=== PATIENT | female | born 1980 | race Two or more races ===

== ENCOUNTER 2016-12-08 10:01 | Emergency (ER) | payer SELFPAY ==
[~2016-12-08] VITALS: Ht 154.9 cm; Wt 102.1 kg
[~2016-12-08 10:01] MED LIST: ALBU0.63 NEB; FLUT1DIS3 IH; MECL25TA3 PO; MONT10TA9 PO; PROAIR HFA8.5 GM IH; TRAM50TA PO
[2016-12-08 10:24] VITALS: BP 156/121
--- NOTE | 2016-12-08 10:33 | RAD ---
Right foot, 3 views, 12/08/2016: History: Foot swelling and pain No fracture or dislocation is identified. There is mild spurring at the midfoot level. A small inferior calcaneal spur is noted. Subcutaneous edema is present. IMPRESSION: No acute bony abnormality is detected.
--- NOTE | 2016-12-08 11:07 | PHYS DOC ---
Past Medical History Past Medical History: Asthma, Bronchitis, Hypertension, Hyperthyroid, Pneumonia Additional Past Medical Histor: vertigo, H/A's Past Surgical History: Appendectomy Additional Past Surgical Histo: CARPAL TUNNEL R HAND. Alcohol Use: None Drug Use: None Adult General Chief Complaint Chief Complaint: FOOT INJURY PAIN [facility] HPI Patient is a 36 year old female presents to emergency department stating that she has having right heel pain and discomfort. She states that she has increased pain when she strained her sleep and rest at night. She states that she also has increased pain when she is trying to ambulate at work. Patient states she has attempted to take ibuprofen with no relief. Patient denies any numbness or tingling into the toes. Patient denies any injury or trauma. Review of Systems Review of Systems Constitutional: Denies fever or chills [] Eyes: Denies change in visual acuity, redness, or eye pain [] HENT: Denies nasal congestion or sore throat [] Respiratory: Denies cough or shortness of breath [] Cardiovascular: No additional information not addressed in HPI [] GI: Denies abdominal pain, nausea, vomiting, bloody stools or diarrhea [] : Denies dysuria or hematuria [] Musculoskeletal: Denies back pain. Right foot pain Integument: Denies rash or skin lesions [] Neurologic: Denies headache, focal weakness or sensory changes [] Endocrine: Denies polyuria or polydipsia [] Allergies Allergies Allergies Coded Allergies Type Severity Reaction Last Updated Verified No Known Drug Allergies 08/03/13 No Physical Exam Physical Exam Constitutional: Well developed, well nourished, no acute distress, non-toxic appearance. [] HENT: Normocephalic, atraumatic, bilateral external ears normal, oropharynx moist, no oral exudates, nose normal. [] Eyes: PERRLA, EOMI, conjunctiva normal, no discharge. [] Neck: Normal range of motion, no tenderness, supple, no stridor. [] Cardiovascular:Heart rate regular rhythm, no murmur [] Lungs & Thorax: Bilateral breath sounds clear to auscultation [] Skin: Warm, dry, no erythema, no rash. [] Extremities: Right heel tenderness, no cyanosis, no clubbing, ROM intact, no edema. Patient with increase tenderness noted upon palpation of the heel area. Peripheral pulses 2+ cap refill brisk less than 2 seconds. Neurologic: Alert and oriented X 3, normal motor function, normal sensory function, no focal deficits noted. [] Psychologic: Affect normal, judgement normal, mood normal. [] Current Patient Data Vital Signs Vital Signs Date Time Temp Pulse Resp B/P (MAP) Pulse Ox O2 Delivery O2 Flow Rate FiO2 12/08/16 10:24 98.0 70 20 98 Room Air 98.0 EKG EKG [] Radiology/Procedures Radiology/Procedures [][facility] [address] [place] [address] IMAGING REPORT Signed PATIENT: DIONTE CAMILO ACCOUNT: [id number] : 1980 LOCATION: ER AGE: 36 SEX: F EXAM STATUS: REG ER ORD. PHYSICIAN: MARTHA AGUIRRE APRN REASON: right foot pain and swelling, no known injury PROCEDURE: FOOT RIGHT 3V Right foot, 3 views, 12/08/2016: History: Foot swelling and pain No fracture or dislocation is identified. There is mild spurring at the midfoot level. A small inferior calcaneal spur is noted. Subcutaneous edema is present. IMPRESSION: No acute bony abnormality is detected. DICTATED and SIGNED BY: NATALIA HONG MD DATE: 12/08/16 1027 CC: MARTHA AGUIRRE APRN; NON,STAFF; UNKNOWN PCP NAME ~ Course & Med Decision Making Course & Med Decision Making Pertinent Labs and Imaging studies reviewed. (See chart for details) Patient will be discharged home in stable condition. Patients x-ray was negative per radiology. Patient was recommended to use ibuprofen 800 mg every 8 hours. Also recommended ice packs on 20 minutes off 20 minutes several times a day. Recommended patient wear good supportive shoes. Patient was also encouraged to follow-up with a developmental electronics assembler. Since symptoms to return back to emergency prior been provided. All questions and concerns been answered at patient's bedside. Patient agrees with discharge instructions treatment regimens and follow-up recommendations. [] Dragon Disclaimer Dragon Disclaimer This electronic medical record was generated, in whole or in part, using a voice recognition dictation system. Departure Departure Impression: Primary Impression: Right foot pain Disposition: HOME, SELF-CARE Condition: STABLE Referrals: UNKNOWN PCP NAME (PCP) Patient Instructions: Plantar Fasciitis Additional Instructions: Activity as tolerated Ice packs on 20 minutes and off 20 minutes several times a day Elevation as much as possible Ibuprofen 800 mg every 8 hours with food Obtain good support shoes with arch support Followup with developmental electronics assembler in 1 week Return to emergency department as needed for signs and symptoms that become worse. MARTHA AGUIRRE APRN Dec 08, 2016 11:07
== END 2016-12-08 11:10 | disposition home or self-care (01) ==
LOC: ER 10:01
DX: M79.671 Pain in right foot (principal); I10 Essential (primary) hypertension; J45.909 Unspecified asthma, uncomplicated; Z90.49 Acquired absence of other specified parts of digestive tract
CPT/HCPCS: 73630; 99284

== ENCOUNTER 2017-10-15 12:54 | Emergency (ER) | payer SELFPAY ==
[~2017-10-15] VITALS: Ht 154.9 cm; Wt 122.5 kg
[2017-10-15] MEDS ORDERED: DEXAMETHASONE SOD PHOS 20 MG/5 ML VIAL. PO ONE (13:30)
[2017-10-15] MEDS ORDERED: ALBUTEROL SULFATE 2.5 MG/3 ML NEBU. NEB ONE ×2 (13:30→14:30)
--- NOTE | 2017-10-15 13:54 | RAD ---
EXAM: Chest, 2 views. HISTORY: Dyspnea. Wheezing. COMPARISON: 11/29/2014 FINDINGS: Frontal and lateral views of the chest are obtained. There is no infiltrate, pleural effusion or pneumothorax. The heart is normal in size. IMPRESSION: No acute pulmonary finding. Electronically signed by: Becky Mccarty MD (10/15/2017 1:51 PM) [place] [id number]
--- NOTE | 2017-10-15 13:55 | PHYS DOC ---
Past Medical History Past Medical History: Asthma, Bronchitis, Hypertension, Hyperthyroid, Pneumonia Additional Past Medical Histor: vertigo, H/A's Past Surgical History: Appendectomy Additional Past Surgical Histo: CARPAL TUNNEL R HAND. Alcohol Use: None Drug Use: None Adult General Chief Complaint Chief Complaint: ASTHMA HPI HPI Patient is a 37 year old female who presents to emergency room with complaints of shortness of breath and wheezing with asthma problems for the last weeks. She states she is currently taking some Augmentin that was prescribed a few weeks ago. States that she did not pick it up until a week ago because she could not afford it until then. Patient states she takes Qvar and Pro Air as prescribed by her primary care doctor. She denies any fever, nasal congestion, runny nose, body aches, ear pain, or headache. She states that her cough has been dry for the last 2 days. Patient is speaking full sentences Review of Systems Review of Systems Constitutional: Denies fever or chills [] HENT: Denies nasal congestion or sore throat [] Respiratory: Reports wheezing, dry cough, and shortness of breath for the last week. Cardiovascular: Denies chest pain GI: Denies abdominal pain, nausea, vomiting, or diarrhea [] Musculoskeletal: Denies back pain or joint pain [] Integument: Denies rash or skin lesions [] Neurologic: Denies headache, focal weakness or sensory changes [] Current Medications Current Medications Current Medications Medications (Trade) Dose Ordered Sig/Elizabeth Start Time Stop Time Status Last Admin Dose Admin Albuterol Sulfate (Ventolin Neb Soln) 2.5 mg 1X ONCE 10/15/17 14:30 10/15/17 14:31 DC 10/15/17 14:29 2.5 MG Dexamethasone Sodium Phosphate (Decadron) 10 mg 1X ONCE 10/15/17 13:30 10/15/17 13:31 DC 10/15/17 14:13 10 MG Allergies Allergies Allergies Coded Allergies Type Severity Reaction Last Updated Verified No Known Drug Allergies 08/03/13 No Physical Exam Physical Exam Constitutional: Well developed, well nourished, mild distress, non-toxic appearance. [] HENT: Normocephalic, atraumatic, bilateral external ears normal, bilateral TMs normal, posterior pharynx normal, oropharynx moist, no oral exudates, nose normal. [] Eyes: Normal Neck: Normal range of motion, no tenderness, supple, no stridor. [] Cardiovascular:Heart rate regular rhythm, no murmur [] Lungs & Thorax: Bilateral breath sounds expiratory wheezing throughout all jj, diminished posterior bases with wheezes bilaterally Skin: Warm, dry, no erythema, no rash, cap refill less than 2 seconds. [] Extremities: No cyanosis, no clubbing, no edema. [] Neurologic: Alert and oriented X 3, normal motor function, normal sensory function, no focal deficits noted. [] Psychologic: Affect normal, judgement normal, mood normal. [] Current Patient Data Vital Signs Vital Signs Date Time Temp Pulse Resp B/P (MAP) Pulse Ox O2 Delivery O2 Flow Rate FiO2 10/15/17 15:25 86 16 126/70 (88) 95 Room Air 10/15/17 13:07 98.5 98.5 EKG EKG [] Radiology/Procedures Radiology/Procedures Chest x-ray negative for any acute findings as read by radiologist[] Course & Med Decision Making Course & Med Decision Making Pertinent Labs and Imaging studies reviewed. (See chart for details) Patient is a 29-year-old female who presented with complaints of dry cough, wheezing and shortness of breath with history of asthma for the last week. Chest x-ray was normal. Patient received 2 breathing treatments in the emergency department and 10 mg of Decadron by mouth. She reported feeling better after the 2 breathing treatments. Lung sounds were clear with occasional expiratory wheeze in posterior bases following the treatment. Patient verbalized an understanding of home care, medications, follow-up, and return to ED instructions and was in agreement with the plan of care. Staff Physician Addendum: I was working in the ER during the course of this patient's visit. I was available for consultation as needed, but I was not directly involved in the care of this patient. [] Dragon Disclaimer Dragon Disclaimer This electronic medical record was generated, in whole or in part, using a voice recognition dictation system. Departure Departure Impression: Primary Impression: Asthma exacerbation Disposition: 01 HOME, SELF-CARE Condition: STABLE Referrals: UNKNOWN PCP NAME (PCP) Patient Instructions: Asthma, Adult, Asxp-cp-Xyme Additional Instructions: Fill prescription(s) and use as directed. Increase clear fluids. Avoid triggers such as smoke, fragrance, dust, and pollen. May take OTC cough suppressants as needed. Follow-up with your primary care doctor next week, return to the emergency room if her symptoms worsen. Scripts Benzonatate (TESSALON PERLE) 100 Mg Capsule 1 CAP PO TID for 7 Days, #21 CAP Prov: JACEK SIERRA HEAT TREAT SUPERVISOR 10/15/17 Prednisone (PREDNISONE) 50 Mg Tablet 1 TAB PO DAILY, #5 TAB Prov: JACEK SIERRA HEAT TREAT SUPERVISOR 10/15/17 Problem Qualifiers Primary Impression: Asthma exacerbation Asthma severity: unspecified severity Asthma persistence: unspecified Qualified Codes: J45.901 - Unspecified asthma with (acute) exacerbation JACEK SIERRA HEAT TREAT SUPERVISOR Oct 15, 2017 13:55 HANNAH VALERIO MD Oct 20, 2017 10:54
[2017-10-15] MEDS ORDERED: BENZ100C PO (15:16)
[2017-10-15] MEDS ORDERED: PRED50TA PO (15:16)
[2017-10-15 15:25] VITALS: BP 126/70
== END 2017-10-15 15:30 | disposition home or self-care (01) ==
LOC: ER 12:54
DX: J45.901 Unspecified asthma with (acute) exacerbation (principal); I10 Essential (primary) hypertension; E05.90 Thyrotoxicosis, unspecified without thyrotoxic crisis or storm; Z90.89 Acquired absence of other organs
CPT/HCPCS: 71046; 94640; 99284; J1100; J7613

== ENCOUNTER 2019-08-27 15:25 | Inpatient (IN) | payer SELFPAY ==
[~2019-08-27] VITALS: Ht 154.9 cm; Wt 109.8 kg
[~2019-08-27 15:25] MED LIST changes: +ALBU2.5V8 IH; +BENZ100C PO; +MECL-75 PO; -MECL25TA3 PO; +MONT10TA49 PO; -MONT10TA9 PO; +PRED50TA PO; -PROAIR HFA8.5 GM IH
[2019-08-27] MEDS ORDERED: DEXAMETHASONE 4 MG TABLET PO ONE (16:45)
[2019-08-27 16:53] LABS: BASO % 0 % (0-3); EOS # 0.2 x10^3/uL (0.0-0.7); EOS % 4 % (0-3); HEMATOCRIT 39.8 % (36.0-47.0); HEMOGLOBIN 13.9 g/dL (12.0-15.5); LYMPH # 1.1 x10^3/uL (1.0-4.8); LYMPH % 22 % (24-48); MEAN CORPUSCULAR HEMOGLOBIN 30 pg (25-35); MEAN CORPUSCULAR HGB CONC 35 g/dL (31-37); MEAN CORPUSCULAR VOLUME 87 fL (79-100); MONO # 0.3 x10^3/uL (0.0-1.1); MONO % 6 % (0-9); NEUT # 3.4 x10^3/uL (1.8-7.7); NEUT % 68 % (31-73); PLATELET COUNT 185 x10^3/uL (140-400); RED BLOOD COUNT 4.58 x10^6/uL (3.50-5.40); RED CELL DISTRIBUTION WIDTH 13.8 % (11.5-14.5); WHITE BLOOD COUNT 5.1 x10^3/uL (4.0-11.0)
[2019-08-27 17:01] LABS: CALCIUM 8.1 mg/dL (8.5-10.1); CREATININE 0.8 mg/dL (0.6-1.0); GFR 79.4; POTASSIUM 3.7 mmol/L (3.5-5.1); PROTHROMBIN TIME PATIENT 12.5 SEC (11.7-14.0)
[2019-08-27 17:07] LABS: ALBUMIN 3.1 g/dL (3.4-5.0); ALBUMIN/GLOBULIN RATIO 0.8 (1.0-1.7); MAGNESIUM 1.8 mg/dL (1.8-2.4); TOTAL BILIRUBIN 0.3 mg/dL (0.2-1.0); TOTAL PROTEIN 7.1 g/dL (6.4-8.2)
[2019-08-27 17:17] LABS: LACTATE DEHYDROGENASE 272 U/L (81-234)
[2019-08-27 17:18] LABS: CREATINE KINASE 142 U/L (26-192)
--- NOTE | 2019-08-27 17:51 | RAD ---
CHEST AP ONLY History: Reason: cough / Spl. Instructions: / History: Comparison: October 15, 2017 Findings: Low lung volumes. Patchy bibasilar opacities. Degraded evaluation of the costophrenic angles difficult to exclude small pleural effusions. No pneumothorax. Heart size. Impression: 1. Low lung volumes with patchy bibasilar opacities, most likely atelectasis. If persistent clinical concern, PA and lateral view of the chest can better assess. Electronically signed by: Zachery Lagos DO (08/27/2019 5:48 PM) [facility]US[facility]
--- NOTE | 2019-08-27 18:46 | PHYS DOC ---
Past Medical History Past Medical History: Asthma, Bronchitis, Hypertension, Hyperthyroid, Pneumonia Additional Past Medical Histor: vertigo, H/A's Past Surgical History: Appendectomy Additional Past Surgical Histo: CARPAL TUNNEL R HAND. Smoking Status: Never Smoker Alcohol Use: None Drug Use: None General Adult EDM: Chief Complaint: COUGH HPI: HPI: Patient is a 39 year old female presents with 1 month history of generalized malaise, SOA, and cough. Reports has been worse over the last 3 days. Reports subjective fever/chills and body aches. Reports recently took her children to their PCP for similar symptoms and they tested positive for COVID-19. Reports history of asthma and chronic bronchitis. Patient Mongolian speaking. 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 Review of Systems: Review of Systems: Constitutional: Reports subjective fever, chills, body aches, and malaise Eyes: Denies redness or eye pain HENT: Denies nasal congestion or sore throat Respiratory: Reports cough and shortness of breath Cardiovascular: Reports chest pain; denies palpitations GI: Denies abdominal pain, nausea, or vomiting : Denies dysuria or hematuria Musculoskeletal: Denies back pain or joint pain; reports myalgias Integument: Denies rash or skin lesions Neurologic: Denies headache, focal weakness or sensory changes Complete systems were reviewed and found to be within normal limits, except as documented in this note. Current Medications: Current Medications Medications (Trade) Dose Ordered Sig/[facility] Start Time Stop Time Status Last Admin Dose Admin Dexamethasone (Decadron) 10 mg 1X ONCE 08/27/19 16:45 08/27/19 16:46 DC 08/27/19 17:05 10 MG Allergies: Allergies: Allergies Coded Allergies Type Severity Reaction Last Updated Verified No Known Drug Allergies 08/03/13 No Physical Exam: PE: Constitutional: Well developed, well nourished HENT: Normocephalic, atraumatic Eyes: Conjunctiva normal, no discharge Neck: Normal range of motion, no tenderness, supple, no meningeal signs Lungs & Thorax: Tachypnea and increased work of breathing Abdomen: Soft, no tenderness Skin: Warm, dry, no erythema, no rash Back: No tenderness, no CVA tenderness Extremities: No tenderness, ROM intact, no edema Neurologic: Alert and oriented X 3, normal motor function, normal sensory function, no focal deficits noted Psychologic: Affect normal, judgment normal Current Patient Data: Labs: Laboratory Tests Test 08/27/19 16:35 White Blood Count 5.1 x10^3/uL (4.0-11.0) Red Blood Count 4.58 x10^6/uL (3.50-5.40) Hemoglobin 13.9 g/dL (12.0-15.5) Hematocrit 39.8 % (36.0-47.0) Mean Corpuscular Volume 87 fL (79-100) Mean Corpuscular Hemoglobin 30 pg (25-35) Mean Corpuscular Hemoglobin Concent 35 g/dL (31-37) Red Cell Distribution Width 13.8 % (11.5-14.5) Platelet Count 185 x10^3/uL (140-400) Neutrophils (%) (Auto) 68 % (31-73) Lymphocytes (%) (Auto) 22 % (24-48) L Monocytes (%) (Auto) 6 % (0-9) Eosinophils (%) (Auto) 4 % (0-3) H Basophils (%) (Auto) 0 % (0-3) Neutrophils # (Auto) 3.4 x10^3/uL (1.8-7.7) Lymphocytes # (Auto) 1.1 x10^3/uL (1.0-4.8) Monocytes # (Auto) 0.3 x10^3/uL (0.0-1.1) Eosinophils # (Auto) 0.2 x10^3/uL (0.0-0.7) Basophils # (Auto) 0.0 x10^3/uL (0.0-0.2) Prothrombin Time 12.5 SEC (11.7-14.0) Prothrombin Time INR 1.0 (0.8-1.1) Activated Partial Thromboplast Time 31 SEC (24-38) Sodium Level 139 mmol/L (136-145) Potassium Level 3.7 mmol/L (3.5-5.1) Chloride Level 104 mmol/L (98-107) Carbon Dioxide Level 25 mmol/L (21-32) Anion Gap 10 (6-14) Blood Urea Nitrogen 9 mg/dL (7-20) Creatinine 0.8 mg/dL (0.6-1.0) Estimated GFR (Cockcroft-Gault) 79.4 BUN/Creatinine Ratio 11 (6-20) Glucose Level 110 mg/dL (70-99) H Lactic Acid Level 1.1 mmol/L (0.4-2.0) Calcium Level 8.1 mg/dL (8.5-10.1) L Magnesium Level 1.8 mg/dL (1.8-2.4) Ferritin 220 ng/mL (8-252) Total Bilirubin 0.3 mg/dL (0.2-1.0) Aspartate Amino Transferase (AST) 48 U/L (15-37) H Alanine Aminotransferase (ALT) 55 U/L (14-59) Alkaline Phosphatase 69 U/L (46-116) Lactate Dehydrogenase 272 U/L (81-234) H Creatine Kinase 142 U/L (26-192) Creatine Kinase MB (Mass) < 0.5 ng/mL (0.0-3.6) Creatine Kinase MB Relative Index % (0-4) Troponin I Quantitative < 0.017 ng/mL (0.000-0.055) Total Protein 7.1 g/dL (6.4-8.2) Albumin 3.1 g/dL (3.4-5.0) L Albumin/Globulin Ratio 0.8 (1.0-1.7) L Laboratory Tests 08/27/19 16:35 Laboratory Tests 08/27/19 16:35 Vital Signs: Vital Signs Date Time Temp Pulse Resp B/P (MAP) Pulse Ox O2 Delivery O2 Flow Rate FiO2 08/27/19 18:01 83 33 116/74 (88) 95 Nasal Cannula 4.0 08/27/19 15:50 98.7 98.7 EKG: EKG: @1601 NSR at 86bpm, NO ST elevation, QRS 72ms, QT/QTc 342/412ms, Q wave in III Radiology/Procedures: Radiology/Procedures: PROCEDURE: CHEST AP ONLY CHEST AP ONLY History: Reason: cough / Spl. Instructions: / History: Comparison: October 15, 2017 Findings: Low lung volumes. Patchy bibasilar opacities. Degraded evaluation of the costophrenic angles difficult to exclude small pleural effusions. No pneumothorax. Heart size. Impression: 1. Low lung volumes with patchy bibasilar opacities, most likely atelectasis. If persistent clinical concern, PA and lateral view of the chest can better assess. Electronically signed by: Zachery Lagos DO (08/27/2019 5:48 PM) [facility] Course & Med Decision Making: Course & Med Decision Making Pertinent Labs and Imaging studies reviewed. (See chart for details) Patient presents with HPI and physical exam concerning for COVID-19 infection. Hx of exposure of known sick contacts within household. Patient with pmh of asthma and bronchitis. Hypoxia upon arrival. Improved with supplemental O2. Patient placed in negative pressure room. COVID precautions in place. COVID testing pending. EKG stable. Labs obtained and posted to chart. CXR with findings consistent for viral pneumonia vs atelectasis. Patient requiring admission for further evaluation and treatment. Discussed with Dr. Reynolds (hospitalist) who is in agreement with admission. Discussed findings and plan with patient, who acknowledges understanding and agreement. COVID-19 CRITERIA: The patient was evaluated during the global COVID-19 pandemic, and that diagnosis was suspected/considered upon their initial presentation. Their evaluation, treatment and testing was consistent with current guidelines for patients who present with complaints or symptoms that may be related to COVID-19. Derrick Disclaimer: Derrick Disclaimer: This electronic medical record was generated, in whole or in part, using a voice recognition dictation system. Departure Departure Impression: Primary Impression: Suspected 2019 novel coronavirus infection Additional Impression: Hypoxia Disposition: 09 ADMITTED INPATIENT Admitting Physician: BETH Ivy) Condition: GUARDED Referrals: UNKNOWN PCP NAME (PCP) Scripts Prednisone (PREDNISONE) 50 Mg Tablet 1 TAB PO DAILY for COVID 19 for 5 Days, #5 TAB Prov: CRISTINA SPENCE MD 09/05/19 Justicifation of Admission Dx: Justifications for Admission: Justification of Admission Dx: Yes Comments: Hypoxia and suspected COVID infection, hx of asthma/bronchitis COVID-19 Assessment: COVID-19 Patient Risks: Age 65 or older: No Sign of co-morbidity: Yes Exp to person + for COVID: Yes Exp to PUI: No Travel from affected area: No Lower respiratory symptoms: Yes Fever: Yes (reported subjective) PPE Use: Full PPE with N95 mask or PAPR: Yes Critical Care Time Critical care time was 30 minutes which includes time at bedside, spent in discussion of patient's care with specialists and/or family members, with interpretation of laboratory and/or radiological studies and is exclusive of procedures. SHAWN BLANK DO Aug 27, 2019 18:46
[2019-08-27] MEDS ORDERED: IPRATRPIUM/ALBUTEROL 0.5/2.5MG 3 ML NEBU. NEB PRN (19:00)
[2019-08-27] MEDS ORDERED: ONDANSETRON PF 4 MG/2 ML VIAL. IV PRN (19:00)
[2019-08-27] MEDS: ALBUTEROL SULFATE 8GM INHALER. INH PRN (23:59)
[2019-08-28] MEDS ORDERED: OMEP20CA16 PO (06:05)
[2019-08-28] MEDS ORDERED: MONT10TA49 PO (06:05)
[2019-08-28] MEDS ORDERED: IBUP-1027 PO (06:06)
[2019-08-28] MEDS ORDERED: FLUT9.9S NS (06:06)
[2019-08-28 06:28] LABS: BASE EXCESS ABG -1 mmol/L (-3-3); HCO3 ABG 23 mmol/L (21-28); PCO2 ABG 33 mmHg (35-46); PO2 ABG 61 mmHg (75-108); SAT O2 ABG 91 % (92-99)
[2019-08-28 06:29] LABS: FIO2 ABG 100
[2019-08-28 07:18] VITALS: BP 103/61
[2019-08-28] MEDS: BENZONATATE 100 MG CAPSULE. PO SCH ×3 (08:19→17:54)
[2019-08-28] MEDS: MORPHINE SULFATE 2 MG/ML VIAL. IV PRN (08:21)
[2019-08-28] MEDS ORDERED: ACETAMINOPHEN 325 MG TABLET. PO PRN (10:15)
[2019-08-28 11:06] VITALS: BP 101/55
[2019-08-28] MEDS ORDERED: IV NORMAL SALINE 1000ML BAG 1,000 ML IV ONE (14:00)
[2019-08-28] MEDS: methylPREDNISolone SOD SUCC PF 40 MG/ML VIAL. IV SCH ×2 (14:18→21:30)
--- NOTE | 2019-08-28 14:19 | NUR ---
SW following. Spoke with RN and reviewed chart. Pt from home with family. Pt is self-pay and [facility] is following. Pt on a non-rebreather. Pt's has pending blood cultures. Pt is COVID pending. Pt on IV Morphine. SW to continue following.
[2019-08-28 15:10] VITALS: BP 125/68
--- NOTE | 2019-08-28 16:45 | PDOC ---
PULMONARY PROGRESS NOTES Vitals Vital Signs Date Time Temp Pulse Resp B/P (MAP) Pulse Ox O2 Delivery O2 Flow Rate FiO2 08/28/19 15:10 97.8 74 18 125/68 (87) 94 97.8 08/28/19 09:32 15.0 08/28/19 08:00 Non-Rebreather Lungs: Clear Labs Laboratory Tests Test 08/27/19 16:35 08/27/19 21:50 08/28/19 00:55 08/28/19 06:27 White Blood Count 5.1 x10^3/uL (4.0-11.0) Red Blood Count 4.58 x10^6/uL (3.50-5.40) Hemoglobin 13.9 g/dL (12.0-15.5) Hematocrit 39.8 % (36.0-47.0) Mean Corpuscular Volume 87 fL (79-100) Mean Corpuscular Hemoglobin 30 pg (25-35) Mean Corpuscular Hemoglobin Concent 35 g/dL (31-37) Red Cell Distribution Width 13.8 % (11.5-14.5) Platelet Count 185 x10^3/uL (140-400) Neutrophils (%) (Auto) 68 % (31-73) Lymphocytes (%) (Auto) 22 % (24-48) Monocytes (%) (Auto) 6 % (0-9) Eosinophils (%) (Auto) 4 % (0-3) Basophils (%) (Auto) 0 % (0-3) Neutrophils # (Auto) 3.4 x10^3/uL (1.8-7.7) Lymphocytes # (Auto) 1.1 x10^3/uL (1.0-4.8) Monocytes # (Auto) 0.3 x10^3/uL (0.0-1.1) Eosinophils # (Auto) 0.2 x10^3/uL (0.0-0.7) Basophils # (Auto) 0.0 x10^3/uL (0.0-0.2) Prothrombin Time 12.5 SEC (11.7-14.0) Prothromb Time International Ratio 1.0 (0.8-1.1) Activated Partial Thromboplast Time 31 SEC (24-38) Sodium Level 139 mmol/L (136-145) Potassium Level 3.7 mmol/L (3.5-5.1) Chloride Level 104 mmol/L (98-107) Carbon Dioxide Level 25 mmol/L (21-32) Anion Gap 10 (6-14) Blood Urea Nitrogen 9 mg/dL (7-20) Creatinine 0.8 mg/dL (0.6-1.0) Estimated GFR (Cockcroft-Gault) 79.4 BUN/Creatinine Ratio 11 (6-20) Glucose Level 110 mg/dL (70-99) Lactic Acid Level 1.1 mmol/L (0.4-2.0) Calcium Level 8.1 mg/dL (8.5-10.1) Magnesium Level 1.8 mg/dL (1.8-2.4) Ferritin 220 ng/mL (8-252) Total Bilirubin 0.3 mg/dL (0.2-1.0) Aspartate Amino Transf (AST/SGOT) 48 U/L (15-37) Alanine Aminotransferase (ALT/SGPT) 55 U/L (14-59) Alkaline Phosphatase 69 U/L (46-116) Lactate Dehydrogenase 272 U/L (81-234) Creatine Kinase 142 U/L (26-192) Creatine Kinase MB (Mass) < 0.5 ng/mL (0.0-3.6) Creatine Kinase MB Relative Index % (0-4) Troponin I Quantitative < 0.017 ng/mL (0.000-0.055) < 0.017 ng/mL (0.000-0.055) < 0.017 ng/mL (0.000-0.055) Total Protein 7.1 g/dL (6.4-8.2) Albumin 3.1 g/dL (3.4-5.0) Albumin/Globulin Ratio 0.8 (1.0-1.7) O2 Saturation 91 % (92-99) Arterial Blood pH 7.45 (7.35-7.45) Arterial Blood pCO2 at Patient Temp 33 mmHg (35-46) Arterial Blood pO2 at Patient Temp 61 mmHg (75-108) Arterial Blood HCO3 23 mmol/L (21-28) Arterial Blood Base Excess -1 mmol/L (-3-3) FiO2 100 Laboratory Tests Test 08/27/19 21:50 08/28/19 00:55 08/28/19 06:27 Troponin I Quantitative < 0.017 ng/mL (0.000-0.055) < 0.017 ng/mL (0.000-0.055) O2 Saturation 91 % (92-99) Arterial Blood pH 7.45 (7.35-7.45) Arterial Blood pCO2 at Patient Temp 33 mmHg (35-46) Arterial Blood pO2 at Patient Temp 61 mmHg (75-108) Arterial Blood HCO3 23 mmol/L (21-28) Arterial Blood Base Excess -1 mmol/L (-3-3) FiO2 100 Medications Active Scripts Medications Dose Route/Sig Max Daily Dose Days Date Category Flonase Allergy Relief (Fluticasone Propionate) 9.9 Ml [place].susp 2 Sprays NS DAILY PRN 08/28/19 Reported Ibuprofen 400 Mg Tablet 400 Mg PO PRN Q6HRS PRN 08/28/19 Reported Omeprazole 20 Mg Capsule.dr 1 Cap PO DAILY PRN 08/28/19 Reported Montelukast Sodium Tablet (Montelukast Sodium) 10 Mg Tablet 10 Mg PO HS 08/28/19 Reported Tessalon Perle (Benzonatate) 100 Mg Capsule 1 Cap PO TID 7 10/15/17 Rx Prednisone 50 Mg Tablet 1 Tab PO DAILY 10/15/17 Rx Albuterol Sulfate Neb Soln (Albuterol Sulfate) 0.63 Mg/3 Ml Vial.neb 0.63 Mg NEB DAILY 11/29/14 Reported Proair Hfa Inhaler (Albuterol Sulfate) 8.5 Gm Hfa.aer.ad 2 Puff IH PRN Q4-6HRS 11/29/14 Reported Advair 250-50 Diskus (Fluticasone/Salmeterol) 1 Each Disk.w.dev 2 Puff IH HS 11/29/14 Reported Montelukast Sodium Tablet (Montelukast Sodium) 10 Mg Tablet 10 Mg PO HS 11/29/14 Reported Impression . Full note dictated, COVID-19 suspect, acute exacerbation of asthma If SARS-CoV-2 negative, will obtain CT angiogram to rule out PE RIP FERNANDEZ MD Aug 28, 2019 16:45
[2019-08-28 19:00] VITALS: BP 114/63
--- NOTE | 2019-08-28 19:51 | PDOC1 ---
History and Physical Date of Admission: Date of Admission DATE: 08/28/19 TIME: 19:43 Chief Complaint: Problems: (1) Asthma exacerbation (2) Hypoxia (3) Suspected 2019 novel coronavirus infection (4) Hypertension (5) Hyperthyroidism (6) Costochondritis, acute History of Present Illness: HPI: 39-year-old female with history of asthma, hypertension, hypothyroidism comes with complaints of chest pain, shortness of breath, cough, and chills and says that she has been sick for the last month but has worsened in the past 3 days. Patient also states that her kids were tested positive for COVID. She denies any aggravating or alleviating factors. She has never experienced symptoms like this before. Before her admission she was using her albuterol inhaler about 3-5 times per week. Denies any sputum production or hemoptysis. Denies fevers, abdominal pain, diarrhea. Past Medical/Surgical History: PMH/PSH: Hypertension Hyperthyroidism Asthma Allergies: Allergies: Coded Allergies: No Known Drug Allergies (Unverified , 08/03/13) Family History: Family History: None Social History: Social History: Denies any alcohol, tobacco or drug abuse Current Medications: Current Medications Current Medications Dexamethasone (Decadron) 10 mg 1X ONCE PO Last administered on 08/27/19at 17:05; Start 08/27/19 at 16:45; Stop 08/27/19 at 16:46; Status DC Ondansetron HCl (Zofran) 4 mg PRN Q8HRS PRN IV NAUSEA/VOMITING Last administered on 08/28/19at 09:31; Start 08/27/19 at 19:00; Stop 08/28/19 at 18:59; Status DC Albuterol/ Ipratropium (Duoneb) 3 ml PRN Q4HRS PRN NEB WHEEZING; Start 08/27/19 at 19:00; Stop 08/27/19 at 22:34; Status DC Albuterol Sulfate (Ventolin Hfa) 1 puff PRN Q8HRS PRN INH SHORTNESS OF BREATH Last administered on 08/27/19at 23:59; Start 08/27/19 at 22:45 Benzonatate (Tessalon Perle) 100 mg Q6HRS PO Last administered on 08/28/19at 17:54; Start 08/28/19 at 08:00 Lorazepam (Ativan Inj) 1 mg PRN Q4HRS PRN IVP ANXIETY / AGITATION Last administered on 08/28/19at 12:00; Start 08/28/19 at 07:15 Morphine Sulfate (Morphine Sulfate) 1 mg PRN Q4HRS PRN IV PAIN Last administered on 08/28/19at 08:21; Start 08/28/19 at 07:15 Acetaminophen (Tylenol) 650 mg PRN Q6HRS PRN PO MILD PAIN / TEMP > 100.5'F; Start 08/28/19 at 10:15 Acetaminophen (Tylenol) 650 mg PRN Q6HRS PRN PO FEVER > 100.5'F; Start 08/28/19 at 10:15; Status UNV Methylprednisolone Sodium Succinate (SOLU-Medrol 40MG VIAL) 60 mg Q8HRS IV Last administered on 08/28/19at 14:18; Start 08/28/19 at 14:00 Sodium Chloride 1,000 ml @ 100 mls/hr Q10H IV ; Start 08/28/19 at 22:00; Stop 08/28/19 at 14:15; Status DC Sodium Chloride 1,000 ml @ 125 mls/hr 1X ONCE IV Last administered on 08/28/19at 14:13; Start 08/28/19 at 14:00; Stop 08/28/19 at 21:59 Enoxaparin Sodium (Lovenox Per Pharmacy Treatment Dosing) 1 each PRN DAILY PRN MC SEE COMMENTS; Start 08/28/19 at 16:45 Enoxaparin Sodium (Lovenox 120mg Syringe) 110 mg Q12HR SQ Last administered on 08/28/19at 17:19; Start 08/28/19 at 17:00 Active Scripts Active Tessalon Perle (Benzonatate) 100 Mg Capsule 1 Cap PO TID 7 Days Prednisone 50 Mg Tablet 1 Tab PO DAILY Reported Flonase Allergy Relief (Fluticasone Propionate) 9.9 Ml [place].susp 2 Sprays NS DAILY PRN Ibuprofen 400 Mg Tablet 400 Mg PO PRN Q6HRS PRN Omeprazole 20 Mg Capsule.dr 1 Cap PO DAILY PRN Montelukast Sodium Tablet (Montelukast Sodium) 10 Mg Tablet 10 Mg PO HS Albuterol Sulfate Neb Soln (Albuterol Sulfate) 0.63 Mg/3 Ml Vial.neb 0.63 Mg NEB DAILY Proair Hfa Inhaler (Albuterol Sulfate) 8.5 Gm Hfa.aer.ad 2 Puff IH PRN Q4-6HRS Advair 250-50 Diskus (Fluticasone/Salmeterol) 1 Each Disk.w.dev 2 Puff IH HS Montelukast Sodium Tablet (Montelukast Sodium) 10 Mg Tablet 10 Mg PO HS ROS: Review of Systems Review of System REVIEW OF SYSTEMS: GENERAL: Denies weakness SKIN: No bruising, hair changes or rashes. EYES: No blurred, double or loss of vision. NOSE AND THROAT: No history of nosebleeds, hoarseness or sore throat. HEART: No history of palpitations, chest pain or shortness of breath on exertion. LUNGS: Denies cough, hemoptysis, wheezing or shortness of breath. GASTROINTESTINAL: Denies changes in appetite, nausea, vomiting, diarrhea or constipation. GENITOURINARY: No history of frequency, urgency, hesitancy or nocturia. NEUROLOGIC: Denies history of numbness, tingling, or tremor. PSYCHIATRIC: No history of panic, anxiety or depression. ENDOCRINE: No history of heat or cold intolerance, polyuria or polydipsia. EXTREMITIES: Denies joint pain, pain on walking or stiffness. Physical Exam: Vital Signs: Vital Signs Date Time Temp Pulse Resp B/P (MAP) Pulse Ox O2 Delivery O2 Flow Rate FiO2 08/28/19 15:10 97.8 74 18 125/68 (87) 94 97.8 08/28/19 09:32 15.0 08/28/19 08:00 Non-Rebreather Physcial Exam: GEN: No apparent distress. Alert and oriented HEENT: Normal cephalic, atraumatic, external auditory canals are patent EYES: Extraocular muscles are intact, pupil are equally round and reactive to light and accommodation MUSCULOSKELETAL: Well developed , well nourished, good range of motion ENDOCRINE: No thyromegaly was palpated LYMPHATICS: No cervical chain or axillary nodes were noted HEMATOPOIETIC: No bruising NECK: Supple, no JVD, no thyromegaly was noted LUNGS: Bilateral wheezing HEART: RRR, S!, S2 present. Peripheral pulses intact, no obvious murmurs noted ABDOMEN: Soft, nontender. Positive bowel sounds, no organomegaly, normal negrita wel sounds EXTREMITIES: Without clubbing, cyanosis, or edema. Pedal pulses intact. Negative Homans sign NEUROLOGIC: Normal speech and tone. A&O x 3, moves all extremities, no obvious focal deficits PSYCHIATRIC: Normal affect, normal mood. Stable SKIN: No ulcerations or rashes, good skin turgor, no jaundice VASCULAR: Good capillary refill, neurovascular bundle appears to be intact Labs: Labs: Laboratory Tests Test 08/27/19 16:35 08/27/19 21:50 08/28/19 00:55 08/28/19 06:27 White Blood Count 5.1 x10^3/uL (4.0-11.0) Red Blood Count 4.58 x10^6/uL (3.50-5.40) Hemoglobin 13.9 g/dL (12.0-15.5) Hematocrit 39.8 % (36.0-47.0) Mean Corpuscular Volume 87 fL (79-100) Mean Corpuscular Hemoglobin 30 pg (25-35) Mean Corpuscular Hemoglobin Concent 35 g/dL (31-37) Red Cell Distribution Width 13.8 % (11.5-14.5) Platelet Count 185 x10^3/uL (140-400) Neutrophils (%) (Auto) 68 % (31-73) Lymphocytes (%) (Auto) 22 % (24-48) Monocytes (%) (Auto) 6 % (0-9) Eosinophils (%) (Auto) 4 % (0-3) Basophils (%) (Auto) 0 % (0-3) Neutrophils # (Auto) 3.4 x10^3/uL (1.8-7.7) Lymphocytes # (Auto) 1.1 x10^3/uL (1.0-4.8) Monocytes # (Auto) 0.3 x10^3/uL (0.0-1.1) Eosinophils # (Auto) 0.2 x10^3/uL (0.0-0.7) Basophils # (Auto) 0.0 x10^3/uL (0.0-0.2) Prothrombin Time 12.5 SEC (11.7-14.0) Prothromb Time International Ratio 1.0 (0.8-1.1) Activated Partial Thromboplast Time 31 SEC (24-38) Sodium Level 139 mmol/L (136-145) Potassium Level 3.7 mmol/L (3.5-5.1) Chloride Level 104 mmol/L (98-107) Carbon Dioxide Level 25 mmol/L (21-32) Anion Gap 10 (6-14) Blood Urea Nitrogen 9 mg/dL (7-20) Creatinine 0.8 mg/dL (0.6-1.0) Estimated GFR (Cockcroft-Gault) 79.4 BUN/Creatinine Ratio 11 (6-20) Glucose Level 110 mg/dL (70-99) Lactic Acid Level 1.1 mmol/L (0.4-2.0) Calcium Level 8.1 mg/dL (8.5-10.1) Magnesium Level 1.8 mg/dL (1.8-2.4) Ferritin 220 ng/mL (8-252) Total Bilirubin 0.3 mg/dL (0.2-1.0) Aspartate Amino Transf (AST/SGOT) 48 U/L (15-37) Alanine Aminotransferase (ALT/SGPT) 55 U/L (14-59) Alkaline Phosphatase 69 U/L (46-116) Lactate Dehydrogenase 272 U/L (81-234) Creatine Kinase 142 U/L (26-192) Creatine Kinase MB (Mass) < 0.5 ng/mL (0.0-3.6) Creatine Kinase MB Relative Index % (0-4) Troponin I Quantitative < 0.017 ng/mL (0.000-0.055) < 0.017 ng/mL (0.000-0.055) < 0.017 ng/mL (0.000-0.055) Total Protein 7.1 g/dL (6.4-8.2) Albumin 3.1 g/dL (3.4-5.0) Albumin/Globulin Ratio 0.8 (1.0-1.7) O2 Saturation 91 % (92-99) Arterial Blood pH 7.45 (7.35-7.45) Arterial Blood pCO2 at Patient Temp 33 mmHg (35-46) Arterial Blood pO2 at Patient Temp 61 mmHg (75-108) Arterial Blood HCO3 23 mmol/L (21-28) Arterial Blood Base Excess -1 mmol/L (-3-3) FiO2 100 Laboratory Tests Test 08/27/19 21:50 08/28/19 00:55 08/28/19 06:27 Troponin I Quantitative < 0.017 ng/mL (0.000-0.055) < 0.017 ng/mL (0.000-0.055) O2 Saturation 91 % (92-99) Arterial Blood pH 7.45 (7.35-7.45) Arterial Blood pCO2 at Patient Temp 33 mmHg (35-46) Arterial Blood pO2 at Patient Temp 61 mmHg (75-108) Arterial Blood HCO3 23 mmol/L (21-28) Arterial Blood Base Excess -1 mmol/L (-3-3) FiO2 100 Assessment/Plan Assessment/Plan 39-year-old female who presents with shortness of breath and a cough that is worse in the past 3 days who is admitted for asthma exacerbation and rule out COVID We will continue with oxygen nonrebreather to maintain sats between 88 and 92% We will use albuterol inhaler as her home med and will avoid nebulizer treatments until COVID testing shows negative. Pulmonary consult Continue home meds Follow-up with final blood blood culture results Justicifation of Admission Dx: Justifications for Admission: Justification of Admission Dx: Yes DUNIA MCKEON MD Aug 28, 2019 19:51
--- NOTE | 2019-08-28 19:51 | CONS ---
DATE OF CONSULTATION: 08/28/2019 ATTENDING PHYSICIAN: Leon Reynolds MD REASON FOR CONSULTATION: The patient seen in pulmonary consultation at the request of Dr. Reynolds for increasing shortness of breath. HISTORY OF PRESENT ILLNESS: The patient is a 39-year-old that states that she has been sick now for approximately a month. She has a history of asthma. She presented with increasing shortness of breath, wheeze. She also had a COVID-19 exposure. She has had three kids in the household that are tested positive. She has had some fevers, some chest pain with coughing. No nausea, vomiting, diarrhea. PAST MEDICAL HISTORY: Asthma, hypertension, hypothyroidism, previous pneumonia. PAST SURGICAL HISTORY: Status post appendectomy, carpal tunnel release. SOCIAL HISTORY: She does not smoke. REVIEW OF SYSTEMS: As indicated above, otherwise other systems were reviewed and negative. ALLERGIES: No known drug allergies. CURRENT MEDICATION: List was reviewed. PHYSICAL EXAMINATION: VITAL SIGNS: Stable. O2 saturation was greater than 92%. HEENT: Eyes, the sclerae were nonicteric. NECK: Jugular venous distention was not elevated. No lymphadenopathy. CHEST: Full expansion. LUNGS: Adequate air flow with no wheezes. CARDIOVASCULAR: Regular rate and rhythm with S1, S2, no S3. ABDOMEN: Soft, nontender, nondistended. EXTREMITIES: No clubbing, cyanosis or edema. LABORATORY DATA: Reviewed. White count was normal. Hemoglobin and hematocrit were noted. She did have a lymphocytopenia. Arterial blood gas; pH of 7.45, PaCO2 of 33, pO2 of 61. Electrolytes were noted. BUN and creatinine was noted. INR was 1.0. IMPRESSION: 1. Acute hypoxemic respiratory failure. 2. Acute exacerbation of asthma. 3. COVID-19 suspect, the patient exposed to 3 kids at home who tested positive for [id number]. 4. Morbid obesity. 5. History of bronchitis. 6. Hypothyroidism. PLAN: 1. We will continue support with IV steroids. 2. Oxygen supplementation. 3. Follow up on [id number] 4. Check D-dimer, once [id number] testing has been reported may consider CT angiogram to rule out PE. RIP FERNANDEZ MD DR: HEMA/mirna JOB#: [id number] / [id number]
[2019-08-28] MEDS: ACETAMINOPHEN 325 MG TABLET. PO PRN (21:31)
[2019-08-28] MEDS ORDERED: IV NORMAL SALINE 1000ML BAG 1,000 ML IV SCH (22:00)
[2019-08-28 23:00] VITALS: BP 104/56
[2019-08-29] MEDS: BENZONATATE 100 MG CAPSULE. PO SCH ×5 (00:20→23:10)
[2019-08-29] MEDS: MORPHINE SULFATE 2 MG/ML VIAL. IV PRN ×2 (02:15→19:41)
[2019-08-29] MEDS: IV NORMAL SALINE 1000ML BAG 1,000 ML IV SCH ×3 (03:48→23:09)
[2019-08-29] MEDS: ONDANSETRON PF 4 MG/2 ML VIAL. IVP PRN (03:48)
[2019-08-29] MEDS: methylPREDNISolone SOD SUCC PF 40 MG/ML VIAL. IV SCH ×3 (06:00→23:09)
[2019-08-29 07:15] VITALS: BP 100/55
--- NOTE | 2019-08-29 07:55 | EKG ---
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
[2019-08-29 08:47] LABS: BASO % 1 % (0-3); EOS % 0 % (0-3); HEMATOCRIT 37.5 % (36.0-47.0); HEMOGLOBIN 12.9 g/dL (12.0-15.5); LYMPH # 0.8 x10^3/uL (1.0-4.8); LYMPH % 10 % (24-48); MEAN CORPUSCULAR HEMOGLOBIN 30 pg (25-35); MEAN CORPUSCULAR HGB CONC 34 g/dL (31-37); MEAN CORPUSCULAR VOLUME 88 fL (79-100); MONO # 0.2 x10^3/uL (0.0-1.1); MONO % 3 % (0-9); NEUT # 7.2 x10^3/uL (1.8-7.7); NEUT % 87 % (31-73); PLATELET COUNT 260 x10^3/uL (140-400); RED BLOOD COUNT 4.27 x10^6/uL (3.50-5.40); RED CELL DISTRIBUTION WIDTH 13.9 % (11.5-14.5); WHITE BLOOD COUNT 8.3 x10^3/uL (4.0-11.0)
[2019-08-29 09:06] LABS: CALCIUM 7.7 mg/dL (8.5-10.1); CREATININE 0.8 mg/dL (0.6-1.0); GFR 79.4; MAGNESIUM 2.1 mg/dL (1.8-2.4); PHOSPHORUS 3.1 mg/dL (2.6-4.7); POTASSIUM 3.8 mmol/L (3.5-5.1)
--- NOTE | 2019-08-29 09:14 | PDOC ---
PULMONARY PROGRESS NOTES Subjective Patient feels about the same short of air with minimal exertion cough mostly nonproductive Vitals Vital Signs Date Time Temp Pulse Resp B/P (MAP) Pulse Ox O2 Delivery O2 Flow Rate FiO2 08/29/19 07:15 96.5 59 17 100/55 (70) 92 96.5 08/29/19 02:15 NonRebreather Mask 15.0 ROS: No Nausea, No Chest Pain, No Abdominal Pain, No Increase Cough Lungs: Clear Cardiovascular: S1, S2 Abdomen: Soft Neuro Exam: Alert Extremities: No Edema Skin: Warm Labs Laboratory Tests Test 08/27/19 16:35 08/27/19 17:05 08/27/19 21:50 08/28/19 00:55 White Blood Count 5.1 x10^3/uL (4.0-11.0) Red Blood Count 4.58 x10^6/uL (3.50-5.40) Hemoglobin 13.9 g/dL (12.0-15.5) Hematocrit 39.8 % (36.0-47.0) Mean Corpuscular Volume 87 fL (79-100) Mean Corpuscular Hemoglobin 30 pg (25-35) Mean Corpuscular Hemoglobin Concent 35 g/dL (31-37) Red Cell Distribution Width 13.8 % (11.5-14.5) Platelet Count 185 x10^3/uL (140-400) Neutrophils (%) (Auto) 68 % (31-73) Lymphocytes (%) (Auto) 22 % (24-48) Monocytes (%) (Auto) 6 % (0-9) Eosinophils (%) (Auto) 4 % (0-3) Basophils (%) (Auto) 0 % (0-3) Neutrophils # (Auto) 3.4 x10^3/uL (1.8-7.7) Lymphocytes # (Auto) 1.1 x10^3/uL (1.0-4.8) Monocytes # (Auto) 0.3 x10^3/uL (0.0-1.1) Eosinophils # (Auto) 0.2 x10^3/uL (0.0-0.7) Basophils # (Auto) 0.0 x10^3/uL (0.0-0.2) Prothrombin Time 12.5 SEC (11.7-14.0) Prothromb Time International Ratio 1.0 (0.8-1.1) Activated Partial Thromboplast Time 31 SEC (24-38) Sodium Level 139 mmol/L (136-145) Potassium Level 3.7 mmol/L (3.5-5.1) Chloride Level 104 mmol/L (98-107) Carbon Dioxide Level 25 mmol/L (21-32) Anion Gap 10 (6-14) Blood Urea Nitrogen 9 mg/dL (7-20) Creatinine 0.8 mg/dL (0.6-1.0) Estimated GFR (Cockcroft-Gault) 79.4 BUN/Creatinine Ratio 11 (6-20) Glucose Level 110 mg/dL (70-99) Lactic Acid Level 1.1 mmol/L (0.4-2.0) Calcium Level 8.1 mg/dL (8.5-10.1) Magnesium Level 1.8 mg/dL (1.8-2.4) Ferritin 220 ng/mL (8-252) Total Bilirubin 0.3 mg/dL (0.2-1.0) Aspartate Amino Transf (AST/SGOT) 48 U/L (15-37) Alanine Aminotransferase (ALT/SGPT) 55 U/L (14-59) Alkaline Phosphatase 69 U/L (46-116) Lactate Dehydrogenase 272 U/L (81-234) Creatine Kinase 142 U/L (26-192) Creatine Kinase MB (Mass) < 0.5 ng/mL (0.0-3.6) Creatine Kinase MB Relative Index % (0-4) Troponin I Quantitative < 0.017 ng/mL (0.000-0.055) < 0.017 ng/mL (0.000-0.055) < 0.017 ng/mL (0.000-0.055) Total Protein 7.1 g/dL (6.4-8.2) Albumin 3.1 g/dL (3.4-5.0) Albumin/Globulin Ratio 0.8 (1.0-1.7) Coronavirus (PCR) Detected (Not Detected) Test 08/28/19 06:27 08/29/19 04:00 O2 Saturation 91 % (92-99) Arterial Blood pH 7.45 (7.35-7.45) Arterial Blood pCO2 at Patient Temp 33 mmHg (35-46) Arterial Blood pO2 at Patient Temp 61 mmHg (75-108) Arterial Blood HCO3 23 mmol/L (21-28) Arterial Blood Base Excess -1 mmol/L (-3-3) FiO2 100 White Blood Count 8.3 x10^3/uL (4.0-11.0) Red Blood Count 4.27 x10^6/uL (3.50-5.40) Hemoglobin 12.9 g/dL (12.0-15.5) Hematocrit 37.5 % (36.0-47.0) Mean Corpuscular Volume 88 fL (79-100) Mean Corpuscular Hemoglobin 30 pg (25-35) Mean Corpuscular Hemoglobin Concent 34 g/dL (31-37) Red Cell Distribution Width 13.9 % (11.5-14.5) Platelet Count 260 x10^3/uL (140-400) Neutrophils (%) (Auto) 87 % (31-73) Lymphocytes (%) (Auto) 10 % (24-48) Monocytes (%) (Auto) 3 % (0-9) Eosinophils (%) (Auto) 0 % (0-3) Basophils (%) (Auto) 1 % (0-3) Neutrophils # (Auto) 7.2 x10^3/uL (1.8-7.7) Lymphocytes # (Auto) 0.8 x10^3/uL (1.0-4.8) Monocytes # (Auto) 0.2 x10^3/uL (0.0-1.1) Eosinophils # (Auto) 0.0 x10^3/uL (0.0-0.7) Basophils # (Auto) 0.0 x10^3/uL (0.0-0.2) Sodium Level 139 mmol/L (136-145) Potassium Level 3.8 mmol/L (3.5-5.1) Chloride Level 105 mmol/L (98-107) Carbon Dioxide Level 21 mmol/L (21-32) Anion Gap 13 (6-14) Blood Urea Nitrogen 17 mg/dL (7-20) Creatinine 0.8 mg/dL (0.6-1.0) Estimated GFR (Cockcroft-Gault) 79.4 Glucose Level 153 mg/dL (70-99) Calcium Level 7.7 mg/dL (8.5-10.1) Phosphorus Level 3.1 mg/dL (2.6-4.7) Magnesium Level 2.1 mg/dL (1.8-2.4) Laboratory Tests Test 08/29/19 04:00 White Blood Count 8.3 x10^3/uL (4.0-11.0) Red Blood Count 4.27 x10^6/uL (3.50-5.40) Hemoglobin 12.9 g/dL (12.0-15.5) Hematocrit 37.5 % (36.0-47.0) Mean Corpuscular Volume 88 fL (79-100) Mean Corpuscular Hemoglobin 30 pg (25-35) Mean Corpuscular Hemoglobin Concent 34 g/dL (31-37) Red Cell Distribution Width 13.9 % (11.5-14.5) Platelet Count 260 x10^3/uL (140-400) Neutrophils (%) (Auto) 87 % (31-73) Lymphocytes (%) (Auto) 10 % (24-48) Monocytes (%) (Auto) 3 % (0-9) Eosinophils (%) (Auto) 0 % (0-3) Basophils (%) (Auto) 1 % (0-3) Neutrophils # (Auto) 7.2 x10^3/uL (1.8-7.7) Lymphocytes # (Auto) 0.8 x10^3/uL (1.0-4.8) Monocytes # (Auto) 0.2 x10^3/uL (0.0-1.1) Eosinophils # (Auto) 0.0 x10^3/uL (0.0-0.7) Basophils # (Auto) 0.0 x10^3/uL (0.0-0.2) Sodium Level 139 mmol/L (136-145) Potassium Level 3.8 mmol/L (3.5-5.1) Chloride Level 105 mmol/L (98-107) Carbon Dioxide Level 21 mmol/L (21-32) Anion Gap 13 (6-14) Blood Urea Nitrogen 17 mg/dL (7-20) Creatinine 0.8 mg/dL (0.6-1.0) Estimated GFR (Cockcroft-Gault) 79.4 Glucose Level 153 mg/dL (70-99) Calcium Level 7.7 mg/dL (8.5-10.1) Phosphorus Level 3.1 mg/dL (2.6-4.7) Magnesium Level 2.1 mg/dL (1.8-2.4) Medications Active Scripts Medications Dose Route/Sig Max Daily Dose Days Date Category Flonase Allergy Relief (Fluticasone Propionate) 9.9 Ml [place].susp 2 Sprays NS DAILY PRN 08/28/19 Reported Ibuprofen 400 Mg Tablet 400 Mg PO PRN Q6HRS PRN 08/28/19 Reported Omeprazole 20 Mg Capsule.dr 1 Cap PO DAILY PRN 08/28/19 Reported Montelukast Sodium Tablet (Montelukast Sodium) 10 Mg Tablet 10 Mg PO HS 08/28/19 Reported Tessalon Perle (Benzonatate) 100 Mg Capsule 1 Cap PO TID 7 10/15/17 Rx Prednisone 50 Mg Tablet 1 Tab PO DAILY 10/15/17 Rx Albuterol Sulfate Neb Soln (Albuterol Sulfate) 0.63 Mg/3 Ml Vial.neb 0.63 Mg NEB DAILY 11/29/14 Reported Proair Hfa Inhaler (Albuterol Sulfate) 8.5 Gm Hfa.aer.ad 2 Puff IH PRN Q4-6HRS 11/29/14 Reported Advair 250-50 Diskus (Fluticasone/Salmeterol) 1 Each Disk.w.dev 2 Puff IH HS 11/29/14 Reported Montelukast Sodium Tablet (Montelukast Sodium) 10 Mg Tablet 10 Mg PO HS 11/29/14 Reported Impression . IMPRESSION: 1. Acute hypoxemic respiratory failure. 2. Acute exacerbation of asthma. 3. COVID-19 suspect, the patient exposed to 3 kids at home who tested positive for [id number]. 4. Morbid obesity. 5. History of bronchitis. 6. Hypothyroidism. 7. COVID-19 viral pneumonia Plan . We will continue support with IV steroids Oxygen supplementation Continue Lovenox full dose for now monitor H&H D-dimer pending Initiate RIP Crawford MD Aug 29, 2019 09:14
[2019-08-29 11:05] VITALS: BP 118/62
[2019-08-29 12:13] LABS: % LYMPHS 10 % (24-48); % MONOS 2 % (0-10); % SEGS 88 % (35-66); PLT ESTIMATE ADEQUATE (ADEQUATE)
--- NOTE | 2019-08-29 12:45 | NUR ---
SW following. Spoke with RN and CM and reviewed chart. Spoke with Dr. Kay and pt not ready for discharge. Pt from home with family. Pt is self-pay and [facility] is following. Pt remains on a non-rebreather. Pt is COVID positive. Pt remains on IV Morphine. SW to continue following.
[2019-08-29 15:11] VITALS: BP 100/60
[2019-08-29] MEDS ORDERED: NON FORMULARY ITEM 1 EA in IV NORMAL SALINE 250ML 250 ML IV ONE (17:00)
--- NOTE | 2019-08-29 17:01 | PDOC ---
[facility] [facility] PROGRESS NOTE Chief Complaint Chief Complaint Shortness of breath History of Present Illness History of Present Illness 39-year-old female with history of asthma, hypertension, hypothyroidism comes with complaints of chest pain, shortness of breath, cough, and chills and says that she has been sick for the last month but has worsened in the past 3 days. Patient also states that her kids were tested positive for COVID. She denies any aggravating or alleviating factors. She has never experienced symptoms like this before. Before her admission she was using her albuterol inhaler about 3-5 times per week. Denies any sputum production or hemoptysis. Denies fevers, abdominal pain, diarrhea. 08/29/2019 Patient seen and examined bedside. No acute events overnight. Patient continues to be on nonrebreather with minimal improvement in symptoms. Patient has tested positive for COVID. Patient is tolerating diet, ambulating, and continues to complain of pleuritic chest pain. Vitals/I&O Vitals/I&O: Vital Signs Date Time Temp Pulse Resp B/P (MAP) Pulse Ox O2 Delivery O2 Flow Rate FiO2 08/29/19 15:11 98.4 73 18 100/60 (73) 98 98.4 08/29/19 08:10 Non-Rebreather 15.0 I & O 08/28/19 08/28/19 08/29/19 15:00 23:00 07:00 Output Total 150 ml Balance -150 ml Physical Exam Physical Exam: GENERAL: Patient is alert and awake. NAD HEENT: Moist mucous membranes. No scleral icterus or obvious cervical lymphadenopathy CV: RRR. No murmurs rubs or gallops. Unable to appreciate S3 or S4 PULM: Bilaterally wheezing on auscultation. ABD: Soft and nondistended on visualization and palpation. Normoactive bowel sounds heard. EXTREMITIES: No pedal edema seen. No warmth or tenderness upon touch. NEURO: Full ROM in all extremities. normal strength on upper extremities. Lungs: Clear Labs Labs: Laboratory Tests Test 08/29/19 04:00 White Blood Count 8.3 x10^3/uL (4.0-11.0) Red Blood Count 4.27 x10^6/uL (3.50-5.40) Hemoglobin 12.9 g/dL (12.0-15.5) Hematocrit 37.5 % (36.0-47.0) Mean Corpuscular Volume 88 fL (79-100) Mean Corpuscular Hemoglobin 30 pg (25-35) Mean Corpuscular Hemoglobin Concent 34 g/dL (31-37) Red Cell Distribution Width 13.9 % (11.5-14.5) Platelet Count 260 x10^3/uL (140-400) Neutrophils (%) (Auto) 87 % (31-73) Lymphocytes (%) (Auto) 10 % (24-48) Monocytes (%) (Auto) 3 % (0-9) Eosinophils (%) (Auto) 0 % (0-3) Basophils (%) (Auto) 1 % (0-3) Neutrophils # (Auto) 7.2 x10^3/uL (1.8-7.7) Lymphocytes # (Auto) 0.8 x10^3/uL (1.0-4.8) Monocytes # (Auto) 0.2 x10^3/uL (0.0-1.1) Eosinophils # (Auto) 0.0 x10^3/uL (0.0-0.7) Basophils # (Auto) 0.0 x10^3/uL (0.0-0.2) Segmented Neutrophils % 88 % (35-66) Lymphocytes % 10 % (24-48) Monocytes % 2 % (0-10) Platelet Estimate Adequate (ADEQUATE) Sodium Level 139 mmol/L (136-145) Potassium Level 3.8 mmol/L (3.5-5.1) Chloride Level 105 mmol/L (98-107) Carbon Dioxide Level 21 mmol/L (21-32) Anion Gap 13 (6-14) Blood Urea Nitrogen 17 mg/dL (7-20) Creatinine 0.8 mg/dL (0.6-1.0) Estimated GFR (Cockcroft-Gault) 79.4 Glucose Level 153 mg/dL (70-99) Calcium Level 7.7 mg/dL (8.5-10.1) Phosphorus Level 3.1 mg/dL (2.6-4.7) Magnesium Level 2.1 mg/dL (1.8-2.4) C-Reactive Protein, Quantitative 32.3 mg/L (0-3.3) Review of Systems Review of Systems: CONSTITUIONAL: Denies weight loss, fever and chills. HEENT: Denies changes in vision and hearing. RESPIRATORY: Denies SOB and cough. CV: Denies palpitations and CP. GI: Denies abdominal pain, nausea, vomiting and diarrhea. : Denies dysuria and urinary frequency. MSK: Denies myalgia and joint pain. SKIN: Denies rash and pruritus. NEUROLOGICAL: Denies headache and syncope. PSYCHIATRIC: Denies recent changes in mood. Denies anxiety and depression. Assessment and Plan Assessmemt and Plan Asthma exacerbation Hypoxia secondary to asthma and COVID positive Acute costochondritis Hypertension Hyperthyroidism Appreciate pulmonary recommendations Continue nonrebreather and O2 therapy to titrate O2 levels greater than 92% Tylenol or NSAIDs for acute costochondritis. Recommend incentive spirometry and ambulation. Continue home meds for chronic conditions Comment Review of Relevant I have reviewed the following items natalya (where applicable) has been applied. Medications: Current Medications Medications (Trade) Dose Ordered Sig/Elizabeth Route PRN Reason Start Time Stop Time Status Last Admin Dose Admin Enoxaparin Sodium (Lovenox 120mg Syringe) 110 mg Q12HR SQ 08/28/19 17:00 08/29/19 08:26 Sodium Chloride 1,000 ml @ 125 mls/hr Q8H IV 08/29/19 03:30 08/29/19 12:05 Ondansetron HCl (Zofran) 4 mg PRN Q6HRS PRN IVP NAUSEA/VOMITING 08/29/19 03:30 08/29/19 03:48 Justicifation of Admission Dx: Justifications for Admission: Justification of Admission Dx: Yes DUNIA MCKEON MD Aug 29, 2019 17:01
[2019-08-29 19:00] VITALS: BP 113/61
[2019-08-29 20:45] LABS: D-DIMER 0.32 ug/mlFEU (0.00-0.50)
[2019-08-29 23:00] VITALS: BP 111/60
[2019-08-30] VITALS (9 sets, daily range): BP systolic 109–135; BP diastolic 56–84
[2019-08-30] MEDS: BENZONATATE 100 MG CAPSULE. PO SCH ×3 (06:00→17:56)
[2019-08-30] MEDS: methylPREDNISolone SOD SUCC PF 40 MG/ML VIAL. IV SCH ×3 (06:00→20:39)
[2019-08-30] MEDS: MORPHINE SULFATE 2 MG/ML VIAL. IV PRN (06:01)
[2019-08-30] MEDS: IV NORMAL SALINE 1000ML BAG 1,000 ML IV SCH ×3 (06:09→20:39)
[2019-08-30] MEDS: NON FORMULARY ITEM 1 EA in IV NORMAL SALINE 250ML 250 ML IV SCH (08:54)
--- NOTE | 2019-08-30 09:28 | PDOC ---
PULMONARY PROGRESS NOTES Subjective Patient very short of air moving around the room, requiring more oxygen Vitals Vital Signs Date Time Temp Pulse Resp B/P (MAP) Pulse Ox O2 Delivery O2 Flow Rate FiO2 08/30/19 07:15 96.2 55 18 120/62 (81) 89 NonRebreather Mask 15.0 96.2 ROS: No Nausea, No Chest Pain, No Abdominal Pain, No Increase Cough Lungs: Clear Cardiovascular: S1, S2 Abdomen: Soft Neuro Exam: Alert Extremities: No Edema Skin: Warm Labs Laboratory Tests Test 08/29/19 04:00 08/29/19 19:30 White Blood Count 8.3 x10^3/uL (4.0-11.0) Red Blood Count 4.27 x10^6/uL (3.50-5.40) Hemoglobin 12.9 g/dL (12.0-15.5) Hematocrit 37.5 % (36.0-47.0) Mean Corpuscular Volume 88 fL (79-100) Mean Corpuscular Hemoglobin 30 pg (25-35) Mean Corpuscular Hemoglobin Concent 34 g/dL (31-37) Red Cell Distribution Width 13.9 % (11.5-14.5) Platelet Count 260 x10^3/uL (140-400) Neutrophils (%) (Auto) 87 % (31-73) Lymphocytes (%) (Auto) 10 % (24-48) Monocytes (%) (Auto) 3 % (0-9) Eosinophils (%) (Auto) 0 % (0-3) Basophils (%) (Auto) 1 % (0-3) Neutrophils # (Auto) 7.2 x10^3/uL (1.8-7.7) Lymphocytes # (Auto) 0.8 x10^3/uL (1.0-4.8) Monocytes # (Auto) 0.2 x10^3/uL (0.0-1.1) Eosinophils # (Auto) 0.0 x10^3/uL (0.0-0.7) Basophils # (Auto) 0.0 x10^3/uL (0.0-0.2) Segmented Neutrophils % 88 % (35-66) Lymphocytes % 10 % (24-48) Monocytes % 2 % (0-10) Platelet Estimate Adequate (ADEQUATE) Sodium Level 139 mmol/L (136-145) Potassium Level 3.8 mmol/L (3.5-5.1) Chloride Level 105 mmol/L (98-107) Carbon Dioxide Level 21 mmol/L (21-32) Anion Gap 13 (6-14) Blood Urea Nitrogen 17 mg/dL (7-20) Creatinine 0.8 mg/dL (0.6-1.0) Estimated GFR (Cockcroft-Gault) 79.4 Glucose Level 153 mg/dL (70-99) Calcium Level 7.7 mg/dL (8.5-10.1) Phosphorus Level 3.1 mg/dL (2.6-4.7) Magnesium Level 2.1 mg/dL (1.8-2.4) C-Reactive Protein, Quantitative 32.3 mg/L (0-3.3) Fibrinogen 462 mg/dL (200-440) D-Dimer (Nickie) 0.32 ug/mlFEU (0.00-0.50) Laboratory Tests Test 08/29/19 19:30 Fibrinogen 462 mg/dL (200-440) D-Dimer (Nickie) 0.32 ug/mlFEU (0.00-0.50) Medications Active Scripts Medications Dose Route/Sig Max Daily Dose Days Date Category Flonase Allergy Relief (Fluticasone Propionate) 9.9 Ml [place].susp 2 Sprays NS DAILY PRN 08/28/19 Reported Ibuprofen 400 Mg Tablet 400 Mg PO PRN Q6HRS PRN 08/28/19 Reported Omeprazole 20 Mg Capsule.dr 1 Cap PO DAILY PRN 08/28/19 Reported Montelukast Sodium Tablet (Montelukast Sodium) 10 Mg Tablet 10 Mg PO HS 08/28/19 Reported Tessalon Perle (Benzonatate) 100 Mg Capsule 1 Cap PO TID 7 10/15/17 Rx Prednisone 50 Mg Tablet 1 Tab PO DAILY 10/15/17 Rx Albuterol Sulfate Neb Soln (Albuterol Sulfate) 0.63 Mg/3 Ml Vial.neb 0.63 Mg NEB DAILY 11/29/14 Reported Proair Hfa Inhaler (Albuterol Sulfate) 8.5 Gm Hfa.aer.ad 2 Puff IH PRN Q4-6HRS 11/29/14 Reported Advair 250-50 Diskus (Fluticasone/Salmeterol) 1 Each Disk.w.dev 2 Puff IH HS 11/29/14 Reported Montelukast Sodium Tablet (Montelukast Sodium) 10 Mg Tablet 10 Mg PO HS 11/29/14 Reported Impression . IMPRESSION: 1. Acute hypoxemic respiratory failure. 2. Acute exacerbation of asthma. 3. COVID-19 suspect, the patient exposed to 3 kids at home who tested positive for [id number]. 4. Morbid obesity. 5. History of bronchitis. 6. Hypothyroidism. 7. COVID-19 viral pneumonia Plan . Will administer convalescent serum Increase oxygen supplementation We will continue support with IV steroids Oxygen supplementation Continue Lovenox full dose for now monitor H&H D-dimer pending Initiate Remdesivir RIP FERNANDEZ MD Aug 30, 2019 09:28
[2019-08-30 09:32] LABS: HEMATOCRIT 36.9 % (36.0-47.0); HEMOGLOBIN 12.8 g/dL (12.0-15.5)
[2019-08-30] MEDS: ACETAMINOPHEN 325 MG TABLET. PO PRN ×2 (11:42→21:02)
--- NOTE | 2019-08-30 16:33 | NUR ---
SW following. Reviewed chart and spoke with RN and CM. Pt not ready for discharge per Dr. Kay. Discharge plan remains home. SW to continue to follow.
--- NOTE | 2019-08-30 17:35 | PDOC ---
[facility] [facility] PROGRESS NOTE Chief Complaint Chief Complaint Asthma exacerbation Hypoxia secondary to asthma and COVID positive Acute costochondritis Hypertension Hyperthyroidism Morbid obesity Appreciate pulmonary recommendations We will start convalescent Ig therapy Continue nonrebreather and O2 therapy to titrate O2 levels greater than 92% Tylenol or NSAIDs for acute costochondritis. Recommend incentive spirometry and ambulation. Continue full dose Lovenox Continue steroids Discussed with RN and field nurse case manager History of Present Illness History of Present Illness 39-year-old female with history of asthma, hypertension, hypothyroidism comes with complaints of chest pain, shortness of breath, cough, and chills and says that she has been sick for the last month but has worsened in the past 3 days. Patient also states that her kids were tested positive for COVID. She denies any aggravating or alleviating factors. She has never experienced symptoms like this before. Before her admission she was using her albuterol inhaler about 3-5 times per week. Denies any sputum production or hemoptysis. Denies fevers, abdominal pain, diarrhea. 08/30/2019 Patient seen and examined bedside. No acute events overnight. Patient continues to complain of pleuritic chest pain and remains on the nonrebreather. Patient is tolerating diet. 08/29/2019 Patient seen and examined bedside. No acute events overnight. Patient continues to be on nonrebreather with minimal improvement in symptoms. Patient has tested positive for COVID. Patient is tolerating diet, ambulating, and continues to complain of pleuritic chest pain. Vitals/I&O Vitals/I&O: Vital Signs Date Time Temp Pulse Resp B/P (MAP) Pulse Ox O2 Delivery O2 Flow Rate FiO2 08/30/19 15:00 97.5 58 20 132/74 (93) 91 NonRebreather Mask 15.0 97.5 I & O 08/29/19 08/29/19 08/30/19 15:00 23:00 07:00 Intake Total 240 ml 360 ml Output Total 850 ml Balance -610 ml 360 ml Physical Exam Physical Exam: GENERAL: Patient is alert and awake. NAD HEENT: Moist mucous membranes. No scleral icterus or obvious cervical lymphadenopathy CV: RRR. No murmurs rubs or gallops. Unable to appreciate S3 or S4 PULM: Bilaterally wheezing on auscultation. ABD: Soft and nondistended on visualization and palpation. Normoactive bowel sounds heard. EXTREMITIES: No pedal edema seen. No warmth or tenderness upon touch. NEURO: Full ROM in all extremities. normal strength on upper extremities. Lungs: Clear Labs Labs: Laboratory Tests Test 08/29/19 19:30 08/30/19 09:18 Fibrinogen 462 mg/dL (200-440) D-Dimer (Nickie) 0.32 ug/mlFEU (0.00-0.50) Hemoglobin 12.8 g/dL (12.0-15.5) Hematocrit 36.9 % (36.0-47.0) Mean Corpuscular Hemoglobin Concent 35 g/dL (31-37) Review of Systems Review of Systems: CONSTITUIONAL: Denies weight loss, fever and chills. HEENT: Denies changes in vision and hearing. RESPIRATORY: Denies SOB and cough. CV: Denies palpitations and CP. GI: Denies abdominal pain, nausea, vomiting and diarrhea. : Denies dysuria and urinary frequency. MSK: Denies myalgia and joint pain. SKIN: Denies rash and pruritus. NEUROLOGICAL: Denies headache and syncope. PSYCHIATRIC: Denies recent changes in mood. Denies anxiety and depression. Assessment and Plan Assessmemt and Plan Problems Medical Problems: (1) Hypoxia Status: Acute (2) Suspected 2019 novel coronavirus infection Status: Acute Comment Review of Relevant I have reviewed the following items natalya (where applicable) has been applied. Medications: Current Medications Medications (Trade) Dose Ordered Sig/Elizabeth Route PRN Reason Start Time Stop Time Status Last Admin Dose Admin Non-Formulary Medication 1 ea/ Sodium Chloride 250 ml @ 500 mls/hr DAILY IV 08/30/19 09:00 09/02/19 09:29 08/30/19 08:54 Justicifation of Admission Dx: Justifications for Admission: Justification of Admission Dx: Yes DUNIA MCKEON MD Aug 30, 2019 17:35
--- NOTE | 2019-08-30 19:48 | NUR ---
Convalescent plasma transfusion verified with MOISE Lopez and started at 1814. Transfusion completed at 190. Pt tolerated transfusion and vitals charted. Transfusion spreadsheet not letting me input start and end times. Blood bank called and will be informing Kamlesh tomorrow who is in charged of transfusions.
[2019-08-31] MEDS: IV NORMAL SALINE 1000ML BAG 1,000 ML IV SCH ×3 (02:56→19:39)
[2019-08-31] MEDS: ALBUTEROL SULFATE 8GM INHALER. INH PRN ×2 (02:58→21:30)
[2019-08-31 03:00] VITALS: BP 133/73
[2019-08-31] MEDS: methylPREDNISolone SOD SUCC PF 40 MG/ML VIAL. IV SCH ×3 (06:37→21:36)
[2019-08-31] MEDS: BENZONATATE 100 MG CAPSULE. PO SCH ×4 (06:37→17:48)
[2019-08-31 07:45] VITALS: BP 134/66
[2019-08-31] MEDS: ACETAMINOPHEN 325 MG TABLET. PO PRN ×2 (08:21→14:40)
[2019-08-31] MEDS: NON FORMULARY ITEM 1 EA in IV NORMAL SALINE 250ML 250 ML IV SCH (10:08)
--- NOTE | 2019-08-31 10:30 | PDOC ---
PULMONARY PROGRESS NOTES Subjective Patient asleep I did not wake her up she did not appear to be in any distress Vitals Vital Signs Date Time Temp Pulse Resp B/P (MAP) Pulse Ox O2 Delivery O2 Flow Rate FiO2 08/31/19 07:45 Non-Rebreather 15.0 08/31/19 07:45 98.6 47 20 134/66 (88) 90 98.6 Comments Patient seen doing the COVID-19 pandemic on visual examination no respiratory distress no paroxysmal breathing Labs Laboratory Tests Test 08/29/19 19:30 08/30/19 09:18 Fibrinogen 462 mg/dL (200-440) D-Dimer (Nickie) 0.32 ug/mlFEU (0.00-0.50) Hemoglobin 12.8 g/dL (12.0-15.5) Hematocrit 36.9 % (36.0-47.0) Mean Corpuscular Hemoglobin Concent 35 g/dL (31-37) Medications Active Scripts Medications Dose Route/Sig Max Daily Dose Days Date Category Flonase Allergy Relief (Fluticasone Propionate) 9.9 Ml [place].susp 2 Sprays NS DAILY PRN 08/28/19 Reported Ibuprofen 400 Mg Tablet 400 Mg PO PRN Q6HRS PRN 08/28/19 Reported Omeprazole 20 Mg Capsule. 1 Cap PO DAILY PRN 08/28/19 Reported Montelukast Sodium Tablet (Montelukast Sodium) 10 Mg Tablet 10 Mg PO HS 08/28/19 Reported Tessalon Perle (Benzonatate) 100 Mg Capsule 1 Cap PO TID 7 10/15/17 Rx Prednisone 50 Mg Tablet 1 Tab PO DAILY 10/15/17 Rx Albuterol Sulfate Neb Soln (Albuterol Sulfate) 0.63 Mg/3 Ml Vial.neb 0.63 Mg NEB DAILY 11/29/14 Reported Proair Hfa Inhaler (Albuterol Sulfate) 8.5 Gm Hfa.aer.ad 2 Puff IH PRN Q4-6HRS 11/29/14 Reported Advair 250-50 Diskus (Fluticasone/Salmeterol) 1 Each Disk.w.dev 2 Puff IH HS 11/29/14 Reported Montelukast Sodium Tablet (Montelukast Sodium) 10 Mg Tablet 10 Mg PO HS 11/29/14 Reported Impression . IMPRESSION: 1. Acute hypoxemic respiratory failure. 2. Acute exacerbation of asthma. 3. COVID-19 suspect, the patient exposed to 3 kids at home who tested positive for [id number]. 4. Morbid obesity. 5. History of bronchitis. 6. Hypothyroidism. 7. COVID-19 viral pneumonia Plan . Appears to be improving Will administer convalescent serum Increase oxygen supplementation We will continue support with IV steroids Oxygen supplementation D-dimer noted, decrease Lovenox to 40 twice daily Status post Remdesivir RIP FERNANDEZ MD Aug 31, 2019 10:30
[2019-08-31 11:15] VITALS: BP 157/77
[2019-08-31] MEDS ORDERED: ANTI-COAG MONITOR BY PHARMACY. MC PRN (13:45)
--- NOTE | 2019-08-31 14:49 | PDOC ---
[employer] [facility] PROGRESS NOTE Chief Complaint Chief Complaint Asthma exacerbation Hypoxia secondary to asthma and COVID positive Acute costochondritis Hypertension Hyperthyroidism Morbid obesity Appreciate pulmonary recommendations We will start convalescent Ig therapy Continue IV Remdivisir Continue nonrebreather and O2 therapy to titrate O2 levels greater than 92% Tylenol or NSAIDs for acute costochondritis. Recommend incentive spirometry and ambulation. Continue full dose Lovenox Continue steroids Discussed with RN and therapeutic case manager History of Present Illness History of Present Illness 39-year-old female with history of asthma, hypertension, hypothyroidism comes with complaints of chest pain, shortness of breath, cough, and chills and says that she has been sick for the last month but has worsened in the past 3 days. Patient also states that her kids were tested positive for COVID. She denies any aggravating or alleviating factors. She has never experienced symptoms like this before. Before her admission she was using her albuterol inhaler about 3-5 times per week. Denies any sputum production or hemoptysis. Denies fevers, abdominal pain, diarrhea. 08/31/2019 08/30/2019 Patient seen and examined bedside. No acute events overnight. Patient continues to complain of pleuritic chest pain and remains on the nonrebreather. Patient is tolerating diet. 08/29/2019 Patient seen and examined bedside. No acute events overnight. Patient continues to be on nonrebreather with minimal improvement in symptoms. Patient has tested positive for COVID. Patient is tolerating diet, ambulating, and continues to complain of pleuritic chest pain. Vitals/I&O Vitals/I&O: Vital Signs Date Time Temp Pulse Resp B/P (MAP) Pulse Ox O2 Delivery O2 Flow Rate FiO2 08/31/19 11:15 98.6 54 18 157/77 (103) 92 NonRebreather Mask 15.0 98.6 I & O 08/30/19 08/30/19 08/31/19 14:59 22:59 06:59 Intake Total 0 ml Balance 0 ml Physical Exam Physical Exam: GENERAL: Patient is alert and awake. NAD HEENT: Moist mucous membranes. No scleral icterus or obvious cervical lymphadenopathy CV: RRR. No murmurs rubs or gallops. Unable to appreciate S3 or S4 PULM: Bilaterally wheezing on auscultation. ABD: Soft and nondistended on visualization and palpation. Normoactive bowel sounds heard. EXTREMITIES: No pedal edema seen. No warmth or tenderness upon touch. NEURO: Full ROM in all extremities. normal strength on upper extremities. Lungs: Clear Assessment and Plan Assessmemt and Plan Problems Medical Problems: (1) Hypoxia Status: Acute (2) Suspected 2019 novel coronavirus infection Status: Acute Comment Review of Relevant I have reviewed the following items natalya (where applicable) has been applied. Medications: Current Medications Medications (Trade) Dose Ordered Sig/Elizabeth Route PRN Reason Start Time Stop Time Status Last Admin Dose Admin Info (Anti-Coagulation Monitoring By Pharmacy) 1 each PRN DAILY PRN MC SEE COMMENTS 08/31/19 13:45 08/31/19 13:46 Justicifation of Admission Dx: Justifications for Admission: Justification of Admission Dx: Yes DUNIA MCKEON MD Aug 31, 2019 14:48
[2019-08-31 15:07] VITALS: BP 140/66
--- NOTE | 2019-08-31 15:55 | NUR ---
SW following. Reviewed chart and spoke with RN and CM. Pt remains on a NonRebreather mask. Pt on IV steroids and will be started on Remdesivir. Pt to be given convalescent serum. SW to continue following.
[2019-08-31] MEDS ORDERED: ATROPINE 0.5 MG/5 ML DISP.SYRINGE. IV PRN (16:45)
--- NOTE | 2019-08-31 16:45 | NUR ---
DR MCKEON NOTIFIED OF PATIENT HR OF 36 WITH SYMPTOMS OF HEADACHE. ORDERS RECEIVED TO GIVE ATROPINE X1 IF HR DROPS BELOW 36. PATIENTS BLOOD PRESSURE STABLE AT THIS TIME. ORDERS RECEIVED TO CONSULT CARDIOLOGY.
[2019-08-31 19:56] VITALS: BP 117/61
[2019-08-31 23:07] VITALS: BP 120/58
[2019-09-01] MEDS: BENZONATATE 100 MG CAPSULE. PO SCH ×5 (01:13→23:41)
[2019-09-01 02:37] VITALS: BP 136/61
[2019-09-01] MEDS: IV NORMAL SALINE 1000ML BAG 1,000 ML IV SCH ×3 (03:00→20:34)
[2019-09-01] MEDS: ALBUTEROL SULFATE 8GM INHALER. INH PRN (04:38)
[2019-09-01] MEDS: methylPREDNISolone SOD SUCC PF 40 MG/ML VIAL. IV SCH ×3 (05:36→20:34)
[2019-09-01 07:00] VITALS: BP 165/81
[2019-09-01] MEDS: ENOXAPARIN 40 MG/0.4 ML SYRINGE. SQ SCH ×2 (09:20→20:34)
[2019-09-01] MEDS: NON FORMULARY ITEM 1 EA in IV NORMAL SALINE 250ML 250 ML IV SCH (09:20)
[2019-09-01 11:00] VITALS: BP 148/69
--- NOTE | 2019-09-01 14:25 | PDOC ---
[facility] [facility] PROGRESS NOTE Chief Complaint Chief Complaint Asthma exacerbation Symptomatic bradycardia Hypoxia secondary to asthma and COVID positive Acute costochondritis Hypertension Hyperthyroidism Morbid obesity Appreciate pulmonary recommendations We will start convalescent Ig therapy Continue IV Remdivisir to completed tomorrow Continue nonrebreather and O2 therapy to titrate O2 levels greater than 92% Tylenol or NSAIDs for acute costochondritis. Recommend incentive spirometry and ambulation. Pending cardiology consult for symptomatic bradycardia. Continue full dose Lovenox Continue steroids Discussed with RN and returned case inspector History of Present Illness History of Present Illness 39-year-old female with history of asthma, hypertension, hypothyroidism comes with complaints of chest pain, shortness of breath, cough, and chills and says that she has been sick for the last month but has worsened in the past 3 days. Patient also states that her kids were tested positive for COVID. She denies any aggravating or alleviating factors. She has never experienced symptoms like this before. Before her admission she was using her albuterol inhaler about 3-5 times per week. Denies any sputum production or hemoptysis. Denies fevers, abdominal pain, diarrhea. 09/01/2019 No acute events overnight. Patient does have bradycardia in the 35 to 40s that is sustained on telemetry monitoring. Patient continues to be on 15 L nonrebreather and saturating 94%. 08/30/2019 Patient seen and examined bedside. No acute events overnight. Patient continues to complain of pleuritic chest pain and remains on the nonrebreather. Patient is tolerating diet. 08/29/2019 Patient seen and examined bedside. No acute events overnight. Patient continues to be on nonrebreather with minimal improvement in symptoms. Patient has tested positive for COVID. Patient is tolerating diet, ambulating, and continues to complain of pleuritic chest pain. Vitals/I&O Vitals/I&O: Vital Signs Date Time Temp Pulse Resp B/P (MAP) Pulse Ox O2 Delivery O2 Flow Rate FiO2 09/01/19 11:00 97.3 44 20 148/69 (95) 97 NonRebreather Mask 14.0 97.3 I & O 08/31/19 08/31/19 09/01/19 15:00 23:00 07:00 Intake Total 1050 ml 200 ml Output Total 450 ml 250 ml 150 ml Balance -450 ml 800 ml 50 ml Physical Exam Physical Exam: GENERAL: Patient is alert and awake. NAD HEENT: Moist mucous membranes. No scleral icterus or obvious cervical lymphadenopathy CV: RRR. No murmurs rubs or gallops. Unable to appreciate S3 or S4 PULM: Bilaterally wheezing on auscultation. ABD: Soft and nondistended on visualization and palpation. Normoactive bowel sounds heard. EXTREMITIES: No pedal edema seen. No warmth or tenderness upon touch. NEURO: Full ROM in all extremities. normal strength on upper extremities. Labs Labs: Laboratory Tests Test 09/01/19 08:44 Thyroid Stimulating Hormone (TSH) 2.371 uIU/mL (0.358-3.74) Review of Systems Review of Systems: CONSTITUIONAL: Denies weight loss, fever and chills. HEENT: Denies changes in vision and hearing. RESPIRATORY: Denies SOB and cough. CV: Denies palpitations and CP. GI: Denies abdominal pain, nausea, vomiting and diarrhea. : Denies dysuria and urinary frequency. MSK: Denies myalgia and joint pain. SKIN: Denies rash and pruritus. NEUROLOGICAL: Denies headache and syncope. PSYCHIATRIC: Denies recent changes in mood. Denies anxiety and depression. Assessment and Plan Assessmemt and Plan Problems Medical Problems: (1) Hypoxia Status: Acute (2) Suspected 2019 novel coronavirus infection Status: Acute Comment Review of Relevant I have reviewed the following items natalya (where applicable) has been applied. Medications: Current Medications Medications (Trade) Dose Ordered Sig/Elizabeth Route PRN Reason Start Time Stop Time Status Last Admin Dose Admin Enoxaparin Sodium (Lovenox 40mg Syringe) 40 mg Q12HR SQ 09/01/19 09:00 09/01/19 09:20 Justicifation of Admission Dx: Justifications for Admission: Justification of Admission Dx: Yes DUNIA MCKEON MD Sep 01, 2019 14:24
--- NOTE | 2019-09-01 14:54 | PDOC2 ---
CONSULT Date of Consult Date of Consult DATE: 09/01/19 TIME: 14:49 Reason for Consult Reason for Consult: Chest pain Referring Physician Referring Physician: Dr. Kay Identification/Chief Complaint Chief Complaint Shortness of breath and cough Source Source: Chart review History of Present Illness Reason for Visit: The patient is a 39-year-old female who was admitted on 08/27/2019 for episodes of cough and increasing shortness of breath. Patient also reported episodes of episodic chest discomfort. The patient symptoms progressed and COVID testing was positive. She has been treated for acute hypoxic respiratory failure as well as positive COVID testing and is followed by the pulmonary service. When she initially was admitted she reported chest discomfort as above. Her EKG showed a sinus rhythm with very mild nonspecific ST segment changes. Troponin has been negative x2. The patient has no documented history of coronary dise ase, congestive heart failure or cardiac arrhythmias. Past Medical History Cardiovascular: HTN Pulmonary: Asthma Musculoskeletal: low back pain Endocrine: Hyperthyroidism Past Surgical History Past Surgical History: Appendectomy, Other (Carpal tunnel on the right) Family History Family History: Hypertension, Migranes Social History Social History: Other No ALCOHOL: none Drugs: None Current Problem List Problem List Problems Medical Problems: (1) Hypoxia Status: Acute (2) Suspected 2019 novel coronavirus infection Status: Acute Current Medications Current Medications Current Medications Dexamethasone (Decadron) 10 mg 1X ONCE PO Last administered on 08/27/19at 17:05; Start 08/27/19 at 16:45; Stop 08/27/19 at 16:46; Status DC Ondansetron HCl (Zofran) 4 mg PRN Q8HRS PRN IV NAUSEA/VOMITING Last administered on 08/28/19at 09:31; Start 08/27/19 at 19:00; Stop 08/28/19 at 18:59; Status DC Albuterol/ Ipratropium (Duoneb) 3 ml PRN Q4HRS PRN NEB WHEEZING; Start 08/27/19 at 19:00; Stop 08/27/19 at 22:34; Status DC Albuterol Sulfate (Ventolin Hfa) 1 puff PRN Q8HRS PRN INH SHORTNESS OF BREATH Last administered on 09/01/19at 04:38; Start 08/27/19 at 22:45 Benzonatate (Tessalon Perle) 100 mg Q6HRS PO Last administered on 09/01/19at 13:08; Start 08/28/19 at 08:00 Lorazepam (Ativan Inj) 1 mg PRN Q4HRS PRN IVP ANXIETY / AGITATION Last administered on 09/01/19at 04:39; Start 08/28/19 at 07:15 Morphine Sulfate (Morphine Sulfate) 1 mg PRN Q4HRS PRN IV PAIN Last a dministered on 08/30/19at 06:01; Start 08/28/19 at 07:15 Acetaminophen (Tylenol) 650 mg PRN Q6HRS PRN PO MILD PAIN / TEMP > 100.5'F Last administered on 08/31/19at 14:40; Start 08/28/19 at 10:15 Acetaminophen (Tylenol) 650 mg PRN Q6HRS PRN PO FEVER > 100.5'F; Start 08/28/19 at 10:15; Status UNV Methylprednisolone Sodium Succinate (SOLU-Medrol 40MG VIAL) 60 mg Q8HRS IV Last administered on 09/01/19at 05:36; Start 08/28/19 at 14:00 Sodium Chloride 1,000 ml @ 100 mls/hr Q10H IV ; Start 08/28/19 at 22:00; Stop 08/28/19 at 14:15; Status DC Sodium Chloride 1,000 ml @ 125 mls/hr 1X ONCE IV Last administered on 08/28/19at 14:13; Start 08/28/19 at 14:00; Stop 08/28/19 at 21:59; Status DC Enoxaparin Sodium (Lovenox Per Pharmacy Treatment Dosing) 1 each PRN DAILY PRN MC SEE COMMENTS; Start 08/28/19 at 16:45; Stop 08/31/19 at 17:42; Status DC Enoxaparin Sodium (Lovenox 120mg Syringe) 110 mg Q12HR SQ Last administered on 08/31/19at 08:21; Start 08/28/19 at 17:00; Stop 08/31/19 at 17:42; Status DC Sodium Chloride 1,000 ml @ 125 mls/hr Q8H IV Last administered on 09/01/19at 13:09; Start 08/29/19 at 03:30 Ondansetron HCl (Zofran) 4 mg PRN Q6HRS PRN IVP NAUSEA/VOMITING Last administered on 08/29/19at 03:48; Start 08/29/19 at 03:30 Non-Formulary Medication 1 ea/ Sodium Chloride 250 ml @ 250 mls/hr 1X ONCE IV Last administered on 08/29/19at 17:46; Start 08/29/19 at 17:00; Stop 08/29/19 at 17:59; Status DC Non-Formulary Medication 1 ea/ Sodium Chloride 250 ml @ 500 mls/hr DAILY IV Last administered on 09/01/19at 09:20; Start 08/30/19 at 09:00; Stop 09/02/19 at 09:29 Info (Anti-Coagulation Monitoring By Pharmacy) 1 each PRN DAILY PRN MC SEE C OMMENTS Last administered on 08/31/19at 13:46; Start 08/31/19 at 13:45; Stop 08/31/19 at 17:47; Status DC Atropine Sulfate (ATROPINE 0.5mg SYRINGE) 0.5 mg PRN 1X PRN IV BRADYCARDIA; Start 08/31/19 at 16:45 Enoxaparin Sodium (Lovenox 40mg Syringe) 40 mg Q12HR SQ Last administered on 09/01/19at 09:20; Start 09/01/19 at 09:00 Active Scripts Active Tessalon Perle (Benzonatate) 100 Mg Capsule 1 Cap PO TID 7 Days Prednisone 50 Mg Tablet 1 Tab PO DAILY Reported Flonase Allergy Relief (Fluticasone Propionate) 9.9 Ml [place].susp 2 Sprays NS DAILY PRN Ibuprofen 400 Mg Tablet 400 Mg PO PRN Q6HRS PRN Omeprazole 20 Mg Capsule.dr 1 Cap PO DAILY PRN Montelukast Sodium Tablet (Montelukast Sodium) 10 Mg Tablet 10 Mg PO HS Albuterol Sulfate Neb Soln (Albuterol Sulfate) 0.63 Mg/3 Ml Vial.neb 0.63 Mg NEB DAILY Proair Hfa Inhaler (Albuterol Sulfate) 8.5 Gm Hfa.aer.ad 2 Puff IH PRN Q4-6HRS Advair 250-50 Diskus (Fluticasone/Salmeterol) 1 Each Disk.w.dev 2 Puff IH HS Montelukast Sodium Tablet (Montelukast Sodium) 10 Mg Tablet 10 Mg PO HS Allergies Allergies: Coded Allergies: No Known Drug Allergies (Unverified , 08/03/13) ROS General: YES: Fatigue Respiratory: YES: Shortness of breath Cardiovascular: yes Chest Pain Physical Exam Physical Exam Deferred Vitals VITALS Vital Signs Date Time Temp Pulse Resp B/P (MAP) Pulse Ox O2 Delivery O2 Flow Rate FiO2 09/01/19 11:00 97.3 44 20 148/69 (95) 97 NonRebreather Mask 14.0 97.3 Labs Labs Laboratory Tests Test 09/01/19 08:44 Thyroid Stimulating Hormone (TSH) 2.371 uIU/mL (0.358-3.74) Laboratory Tests Test 09/01/19 08:44 Thyroid Stimulating Hormone (TSH) 2.371 uIU/mL (0.358-3.74) Images Images Chest x-ray with patchy bibasilar opacities Assessment/Plan Assessment/Plan 1. Acute hypoxic respiratory failure, COVID positive. Continuing treatment as per the pulmonary and ID services. Patiently mildly improved. 2. Episodes of chest discomfort on admission. No acute ischemic EKG changes. No elevation in troponin. We will continue treatment as above. Will consider echocardiogram when available as per COVID protocol. If the patient has further discomfort as an outpatient would consider outpatient ischemic work-up. 3. Hypertension. Controlled. Thank you for allowing us to participate in the care of your patient once MARIE ROMERO MD Sep 01, 2019 14:54
[2019-09-01 15:00] VITALS: BP 124/59
--- NOTE | 2019-09-01 15:49 | PDOC ---
PULMONARY PROGRESS NOTES Subjective Patient when sitting up or getting up gets dizzy notices her heart rate is low Otherwise not more short of air Vitals Vital Signs Date Time Temp Pulse Resp B/P (MAP) Pulse Ox O2 Delivery O2 Flow Rate FiO2 09/01/19 15:00 98.3 46 22 124/59 (80) 97 NonRebreather Mask 15.0 98.3 Comments Patient seen doing the COVID-19 pandemic on visual examination no respiratory distress no paroxysmal breathing Labs Laboratory Tests Test 09/01/19 08:44 Thyroid Stimulating Hormone (TSH) 2.371 uIU/mL (0.358-3.74) Laboratory Tests Test 09/01/19 08:44 Thyroid Stimulating Hormone (TSH) 2.371 uIU/mL (0.358-3.74) Medications Active Scripts Medications Dose Route/Sig Max Daily Dose Days Date Category Flonase Allergy Relief (Fluticasone Propionate) 9.9 Ml [place].susp 2 Sprays NS DAILY PRN 08/28/19 Reported Ibuprofen 400 Mg Tablet 400 Mg PO PRN Q6HRS PRN 08/28/19 Reported Omeprazole 20 Mg Capsule.dr 1 Cap PO DAILY PRN 08/28/19 Reported Montelukast Sodium Tablet (Montelukast Sodium) 10 Mg Tablet 10 Mg PO HS 08/28/19 Reported Tessalon Perle (Benzonatate) 100 Mg Capsule 1 Cap PO TID 7 10/15/17 Rx Prednisone 50 Mg Tablet 1 Tab PO DAILY 10/15/17 Rx Albuterol Sulfate Neb Soln (Albuterol Sulfate) 0.63 Mg/3 Ml Vial.neb 0.63 Mg NEB DAILY 11/29/14 Reported Proair Hfa Inhaler (Albuterol Sulfate) 8.5 Gm Hfa.aer.ad 2 Puff IH PRN Q4-6HRS 11/29/14 Reported Advair 250-50 Diskus (Fluticasone/Salmeterol) 1 Each Disk.w.dev 2 Puff IH HS 11/29/14 Reported Montelukast Sodium Tablet (Montelukast Sodium) 10 Mg Tablet 10 Mg PO HS 11/29/14 Reported Impression . IMPRESSION: 1. Acute hypoxemic respiratory failure. 2. Acute exacerbation of asthma. 3. COVID-19 suspect, the patient exposed to 3 kids at home who tested positive for [id number]. 4. Morbid obesity. 5. History of bronchitis. 6. Hypothyroidism. 7. COVID-19 viral pneumonia 8. Bradycardia etiology unclear may be related to COVID-19, reviewed medication list Plan . Placed on telemetry EKG Cardiology consulted Will administer convalescent serum Increase oxygen supplementation We will continue support with IV steroids, steroids decreased to twice daily Oxygen supplementation D-dimer noted, decrease Lovenox to 40 twice daily Status post Remdesivir RIP FERNANDEZ MD Sep 01, 2019 15:49
--- NOTE | 2019-09-01 16:08 | NUR ---
Dr. Ruiz notified of patient's negative covid result & is ok with patient transferring to different unit. Addendum: 09/01/19 at 1609 by CARLOS FLORES RN Disregard this note, wrong patient.
--- NOTE | 2019-09-01 16:40 | EKG ---
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
--- NOTE | 2019-09-01 16:49 | NUR ---
SW following. Spoke with RN and CM. Reviewed chart and spoke with Dr. Kay. Pt listed as self-pay but might have VA benefits from her spouse. 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 Pt not ready for discharge. SW to continue following.
[2019-09-01 19:00] VITALS: BP 130/64
[2019-09-01 23:00] VITALS: BP 133/62
[2019-09-01] MEDS: ACETAMINOPHEN 325 MG TABLET. PO PRN (23:41)
[2019-09-02 03:00] VITALS: BP 141/77
[2019-09-02] MEDS: BENZONATATE 100 MG CAPSULE. PO SCH ×4 (05:47→22:25)
[2019-09-02] MEDS: IV NORMAL SALINE 1000ML BAG 1,000 ML IV SCH ×4 (05:47→22:25)
[2019-09-02 07:00] VITALS: BP 122/67
--- NOTE | 2019-09-02 08:46 | PDOC ---
PULMONARY PROGRESS NOTES Subjective 0n nrb 100% fio2, sob better, has cough, no pain Vitals Vital Signs Date Time Temp Pulse Resp B/P (MAP) Pulse Ox O2 Delivery O2 Flow Rate FiO2 09/02/19 07:00 97.7 45 22 122/67 (85) 99 NonRebreather Mask 15.0 97.7 Comments Patient seen doing the pandemic on visual examination no respiratory distress no paroxysmal breathing alert no paradoxical abd motion bradycardic mild edema obese alert no rash General: Alert HEENT: Other (nc at perrl ) Cardiovascular: S1, S2 Abdomen: Soft Neuro Exam: Alert Extremities: Other (edema) Skin: Warm Labs Laboratory Tests Test 09/01/19 08:44 Thyroid Stimulating Hormone (TSH) 2.371 uIU/mL (0.358-3.74) Medications Active Scripts Medications Dose Route/Sig Max Daily Dose Days Date Category Flonase Allergy Relief (Fluticasone Propionate) 9.9 Ml [place].susp 2 Sprays NS DAILY PRN 08/28/19 Reported Ibuprofen 400 Mg Tablet 400 Mg PO PRN Q6HRS PRN 08/28/19 Reported Omeprazole 20 Mg Capsule.dr 1 Cap PO DAILY PRN 08/28/19 Reported Montelukast Sodium Tablet (Montelukast Sodium) 10 Mg Tablet 10 Mg PO HS 08/28/19 Reported Tessalon Perle (Benzonatate) 100 Mg Capsule 1 Cap PO TID 7 10/15/17 Rx Prednisone 50 Mg Tablet 1 Tab PO DAILY 10/15/17 Rx Albuterol Sulfate Neb Soln (Albuterol Sulfate) 0.63 Mg/3 Ml Vial.neb 0.63 Mg NEB DAILY 11/29/14 Reported Proair Hfa Inhaler (Albuterol Sulfate) 8.5 Gm Hfa.aer.ad 2 Puff IH PRN Q4-6HRS 11/29/14 Reported Advair 250-50 Diskus (Fluticasone/Salmeterol) 1 Each Disk.w.dev 2 Puff IH HS 11/29/14 Reported Montelukast Sodium Tablet (Montelukast Sodium) 10 Mg Tablet 10 Mg PO HS 11/29/14 Reported Impression . IMPRESSION: 1. Acute hypoxemic respiratory failure. 2. Acute exacerbation of asthma. 3. COVID-19 pos, the patient exposed to 3 kids at home who tested positive for [id number]. 4. Morbid obesity. 5. History of bronchitis. 6. Hypothyroidism. 7. COVID-19 viral pneumonia 8. Bradycardia etiology unclear may be related to COVID-19, reviewed medication list Plan . 02 titration Placed on telemetry, monitor hr EKG Cardiology consulted s/p convalescent serum Increase oxygen supplementation We will continue support with IV steroids, Oxygen supplementation D-dimer noted, decrease Lovenox to 40 twice daily Status post Remdesivir discussed w SCOTT Amor MD Sep 02, 2019 08:46
[2019-09-02] MEDS: NON FORMULARY ITEM 1 EA in IV NORMAL SALINE 250ML 250 ML IV SCH (09:52)
[2019-09-02] MEDS: methylPREDNISolone SOD SUCC PF 40 MG/ML VIAL. IV SCH ×2 (09:53→20:32)
[2019-09-02] MEDS: ENOXAPARIN 40 MG/0.4 ML SYRINGE. SQ SCH ×2 (09:53→20:31)
[2019-09-02 11:18] VITALS: BP 142/67
[2019-09-02] MEDS: ACETAMINOPHEN 325 MG TABLET. PO PRN ×2 (11:24→23:41)
--- NOTE | 2019-09-02 12:32 | PDOC ---
[employer] PROGRESS NOTE Chief Complaint Chief Complaint Asthma exacerbation Symptomatic bradycardia Hypoxia secondary to asthma and COVID positive Acute costochondritis Hypertension Hyperthyroidism Morbid obesity Appreciate pulmonary recommendations We will continue convalescent Ig therapy IV Remdesivir completed today Steroids decreased to twice daily Continue nonrebreather and O2 therapy to titrate O2 levels greater than 92% Tylenol or NSAIDs for acute costochondritis. Recommend incentive spirometry and ambulation. Pending cardiology consult for symptomatic bradycardia. Lovenox dose decreased to 40 twice daily Discussed with RN History of Present Illness History of Present Illness 39-year-old female with history of asthma, hypertension, hypothyroidism comes with complaints of chest pain, shortness of breath, cough, and chills and says that she has been sick for the last month but has worsened in the past 3 days. Patient also states that her kids were tested positive for COVID. She denies any aggravating or alleviating factors. She has never experienced symptoms like this before. Before her admission she was using her albuterol inhaler about 3-5 times per week. Denies any sputum production or hemoptysis. Denies fevers, abdominal pain, diarrhea. 09/02/2019 No acute events overnight. Patient continues to be bradycardic in the 35 to 40s. Cardiology stated that we will continue to observe for now. Patient is tolerating diet and her chest pains have improved. She still requires to be on 15 L nonrebreather and she continues to saturate at 95%. 09/01/2019 No acute events overnight. Patient does have bradycardia in the 35 to 40s that is sustained on telemetry monitoring. Patient continues to be on 15 L nonrebreather and saturating 94%. 08/30/2019 Patient seen and examined bedside. No acute events overnight. Patient continues to complain of pleuritic chest pain and remains on the nonrebreather. Patient is tolerating diet. 08/29/2019 Patient seen and examined bedside. No acute events overnight. Patient continues to be on nonrebreather with minimal improvement in symptoms. Patient has tested positive for COVID. Patient is tolerating diet, ambulating, and continues to complain of pleuritic chest pain. Vitals/I&O Vitals/I&O: Vital Signs Date Time Temp Pulse Resp B/P (MAP) Pulse Ox O2 Delivery O2 Flow Rate FiO2 09/02/19 11:18 96.7 45 22 142/67 (92) 97 NonRebreather Mask 15.0 96.7 I & O 09/01/19 09/01/19 09/02/19 15:00 23:00 07:00 Intake Total 1550 ml Balance 1550 ml Physical Exam Physical Exam: GENERAL: Patient is alert and awake. NAD HEENT: Moist mucous membranes. No scleral icterus or obvious cervical lymphadenopathy CV: RRR. No murmurs rubs or gallops. Unable to appreciate S3 or S4 PULM: Bilaterally wheezing on auscultation. ABD: Soft and nondistended on visualization and palpation. Normoactive bowel sounds heard. EXTREMITIES: No pedal edema seen. No warmth or tenderness upon touch. NEURO: Full ROM in all extremities. normal strength on upper extremities. Labs Labs: Current Medications Medications (Trade) Dose Ordered Sig/Elizabeth Route PRN Reason Start Time Stop Time Status Last Admin Dose Admin Dexamethasone (Decadron) 10 mg 1X ONCE PO 08/27/19 16:45 08/27/19 16:46 DC 08/27/19 17:05 Ondansetron HCl (Zofran) 4 mg PRN Q8HRS PRN IV NAUSEA/VOMITING 08/27/19 19:00 08/28/19 18:59 DC 08/28/19 09:31 Albuterol/ Ipratropium (Duoneb) 3 ml PRN Q4HRS PRN NEB WHEEZING 08/27/19 19:00 08/27/19 22:34 DC Albuterol Sulfate (Ventolin Hfa) 1 puff PRN Q8HRS PRN INH SHORTNESS OF BREATH 08/27/19 22:45 09/01/19 04:38 Benzonatate (Tessalon Perle) 100 mg Q6HRS PO 08/28/19 08:00 09/02/19 11:24 Lorazepam (Ativan Inj) 1 mg PRN Q4HRS PRN IVP ANXIETY / AGITATION 08/28/19 07:15 09/01/19 04:39 Morphine Sulfate (Morphine Sulfate) 1 mg PRN Q4HRS PRN IV PAIN 08/28/19 07:15 08/30/19 06:01 Acetaminophen (Tylenol) 650 mg PRN Q6HRS PRN PO MILD PAIN / TEMP > 100.5'F 08/28/19 10:15 09/02/19 11:24 Acetaminophen (Tylenol) 650 mg PRN Q6HRS PRN PO FEVER > 100.5'F 08/28/19 10:15 UNV Methylprednisolone Sodium Succinate (SOLU-Medrol 40MG VIAL) 60 mg Q8HRS IV 08/28/19 14:00 09/01/19 15:47 DC 09/01/19 14:51 Sodium Chloride 1,000 ml @ 100 mls/hr Q10H IV 08/28/19 22:00 08/28/19 14:15 DC Sodium Chloride 1,000 ml @ 125 mls/hr 1X ONCE IV 08/28/19 14:00 08/28/19 21:59 DC 08/28/19 14:13 Enoxaparin Sodium (Lovenox Per Pharmacy Treatment Dosing) 1 each PRN DAILY PRN MC SEE COMMENTS 08/28/19 16:45 08/31/19 17:42 DC Enoxaparin Sodium (Lovenox 120mg Syringe) 110 mg Q12HR SQ 08/28/19 17:00 08/31/19 17:42 DC 08/31/19 08:21 Sodium Chloride 1,000 ml @ 125 mls/hr Q8H IV 08/29/19 03:30 09/02/19 11:25 Ondansetron HCl (Zofran) 4 mg PRN Q6HRS PRN IVP NAUSEA/VOMITING 08/29/19 03:30 08/29/19 03:48 Non-Formulary Medication 1 ea/ Sodium Chloride 250 ml @ 250 mls/hr 1X ONCE IV 08/29/19 17:00 08/29/19 17:59 DC 08/29/19 17:46 Non-Formulary Medication 1 ea/ Sodium Chloride 250 ml @ 500 mls/hr DAILY IV 08/30/19 09:00 09/02/19 09:29 DC 09/02/19 09:52 Info (Anti-Coagulation Monitoring By Pharmacy) 1 each PRN DAILY PRN MC SEE COMMENTS 08/31/19 13:45 08/31/19 17:47 DC 08/31/19 13:46 Atropine Sulfate (ATROPINE 0.5mg SYRINGE) 0.5 mg PRN 1X PRN IV BRADYCARDIA 08/31/19 16:45 Enoxaparin Sodium (Lovenox 40mg Syringe) 40 mg Q12HR SQ 09/01/19 09:00 09/02/19 09:53 Methylprednisolone Sodium Succinate (SOLU-Medrol 40MG VIAL) 60 mg BID IV 09/01/19 21:00 09/02/19 09:53 Review of Systems Review of Systems: CONSTITUIONAL: Denies weight loss, fever and chills. HEENT: Denies changes in vision and hearing. RESPIRATORY: Denies SOB and cough. CV: Denies palpitations and CP. GI: Denies abdominal pain, nausea, vomiting and diarrhea. : Denies dysuria and urinary frequency. MSK: Denies myalgia and joint pain. SKIN: Denies rash and pruritus. NEUROLOGICAL: Denies headache and syncope. PSYCHIATRIC: Denies recent changes in mood. Denies anxiety and depression. Assessment and Plan Assessmemt and Plan Problems Medical Problems: (1) Hypoxia Status: Acute (2) Suspected 2019 novel coronavirus infection Status: Acute Comment Review of Relevant I have reviewed the following items natalya (where applicable) has been applied. Medications: Current Medications Medications (Trade) Dose Ordered Sig/Elizabeth Route PRN Reason Start Time Stop Time Status Last Admin Dose Admin Methylprednisolone Sodium Succinate (SOLU-Medrol 40MG VIAL) 60 mg BID IV 09/01/19 21:00 09/02/19 09:53 Justicifation of Admission Dx: Justifications for Admission: Justification of Admission Dx: Yes DUNIA MCKEON MD Sep 02, 2019 12:32
--- NOTE | 2019-09-02 12:56 | PDOC ---
PROGRESS NOTES Subjective Subjective Patient seen and evaluated Objective Objective Vital Signs Date Time Temp Pulse Resp B/P (MAP) Pulse Ox O2 Delivery O2 Flow Rate FiO2 09/02/19 11:18 96.7 45 22 142/67 (92) 97 NonRebreather Mask 15.0 96.7 Intake and Output 09/02/19 07:00 Intake Total 1550 ml Balance 1550 ml Intake Oral 50 ml IV Total 1500 ml # Voids 6 Physical Exam Physical Exam Deferred. Assessment Assessment Problems Medical Problems: (1) Hypoxia Status: Acute (2) Suspected 2019 novel coronavirus infection Status: Acute 1. Acute hypoxic respiratory failure, COVID positive. Continuing treatment as per the pulmonary and ID services. The patient continues to slowly improve. 2. Episodes of chest discomfort on admission. No acute ischemic EKG changes. No elevation in troponin. We will continue treatment as above. Will consider echocardiogram when available as per COVID protocol. If the patient has further discomfort as an outpatient would consider outpatient ischemic work-up. 3. Hypertension. Controlled. 4. Sinus bradycardia. Rates in the upper 30s and mid 40s. Not on any beta blockers or calcium blockers. We will continue to monitor. Comment Review of Relevant I have reviewed the following items natalya (where applicable) has been applied. Labs Laboratory Tests Test 09/01/19 08:44 Thyroid Stimulating Hormone (TSH) 2.371 uIU/mL (0.358-3.74) Microbiology 08/27/19 Blood Culture - Final, Complete NO GROWTH AFTER 5 DAYS Medications Current Medications Dexamethasone (Decadron) 10 mg 1X ONCE PO Last administered on 08/27/19at 17:05; Start 08/27/19 at 16:45; Stop 08/27/19 at 16:46; Status DC Ondansetron HCl (Zofran) 4 mg PRN Q8HRS PRN IV NAUSEA/VOMITING Last administered on 08/28/19at 09:31; Start 08/27/19 at 19:00; Stop 08/28/19 at 18:59; Status DC Albuterol/ Ipratropium (Duoneb) 3 ml PRN Q4HRS PRN NEB WHEEZING; Start 08/27/19 at 19:00; Stop 08/27/19 at 22:34; Status DC Albuterol Sulfate (Ventolin Hfa) 1 puff PRN Q8HRS PRN INH SHORTNESS OF BREATH Last administered on 09/01/19at 04:38; Start 08/27/19 at 22:45 Benzonatate (Tessalon Perle) 100 mg Q6HRS PO Last administered on 09/02/19at 11:24; Start 08/28/19 at 08:00 Lorazepam (Ativan Inj) 1 mg PRN Q4HRS PRN IVP ANXIETY / AGITATION Last administered on 09/01/19at 04:39; Start 08/28/19 at 07:15 Morphine Sulfate (Morphine Sulfate) 1 mg PRN Q4HRS PRN IV PAIN Last administered on 08/30/19at 06:01; Start 08/28/19 at 07:15 Acetaminophen (Tylenol) 650 mg PRN Q6HRS PRN PO MILD PAIN / TEMP > 100.5'F Last administered on 09/02/19at 11:24; Start 08/28/19 at 10:15 Acetaminophen (Tylenol) 650 mg PRN Q6HRS PRN PO FEVER > 100.5'F; Start 08/28/19 at 10:15; Status UNV Methylprednisolone Sodium Succinate (SOLU-Medrol 40MG VIAL) 60 mg Q8HRS IV Last administered on 09/01/19at 14:51; Start 08/28/19 at 14:00; Stop 09/01/19 at 15:47; Status DC Sodium Chloride 1,000 ml @ 100 mls/hr Q10H IV ; Start 08/28/19 at 22:00; Stop 08/28/19 at 14:15; Status DC Sodium Chloride 1,000 ml @ 125 mls/hr 1X ONCE IV Last administered on 08/28/19at 14:13; Start 08/28/19 at 14:00; Stop 08/28/19 at 21:59; Status DC Enoxaparin Sodium (Lovenox Per Pharmacy Treatment Dosing) 1 each PRN DAILY PRN MC SEE COMMENTS; Start 08/28/19 at 16:45; Stop 08/31/19 at 17:42; Status DC Enoxaparin Sodium (Lovenox 120mg Syringe) 110 mg Q12HR SQ Last administered on 08/31/19at 08:21; Start 08/28/19 at 17:00; Stop 08/31/19 at 17:42; Status DC Sodium Chloride 1,000 ml @ 125 mls/hr Q8H IV Last administered on 09/02/19at 11:25; Start 08/29/19 at 03:30 Ondansetron HCl (Zofran) 4 mg PRN Q6HRS PRN IVP NAUSEA/VOMITING Last administered on 08/29/19at 03:48; Start 08/29/19 at 03:30 Non-Formulary Medication 1 ea/ Sodium Chloride 250 ml @ 250 mls/hr 1X ONCE IV Last administered on 08/29/19at 17:46; Start 08/29/19 at 17:00; Stop 08/29/19 at 17:59; Status DC Non-Formulary Medication 1 ea/ Sodium Chloride 250 ml @ 500 mls/hr DAILY IV Last administered on 09/02/19at 09:52; Start 08/30/19 at 09:00; Stop 09/02/19 at 09:29; Status DC Info (Anti-Coagulation Monitoring By Pharmacy) 1 each PRN DAILY PRN MC SEE COMMENTS Last administered on 08/31/19at 13:46; Start 08/31/19 at 13:45; Stop 08/31/19 at 17:47; Status DC Atropine Sulfate (ATROPINE 0.5mg SYRINGE) 0.5 mg PRN 1X PRN IV BRADYCARDIA; Start 08/31/19 at 16:45 Enoxaparin Sodium (Lovenox 40mg Syringe) 40 mg Q12HR SQ Last administered on 09/02/19at 09:53; Start 09/01/19 at 09:00 Methylprednisolone Sodium Succinate (SOLU-Medrol 40MG VIAL) 60 mg BID IV Last administered on 09/02/19at 09:53; Start 09/01/19 at 21:00 Active Scripts Active Tessalon Perle (Benzonatate) 100 Mg Capsule 1 Cap PO TID 7 Days Prednisone 50 Mg Tablet 1 Tab PO DAILY Reported Flonase Allergy Relief (Fluticasone Propionate) 9.9 Ml [place].susp 2 Sprays NS DAILY PRN Ibuprofen 400 Mg Tablet 400 Mg PO PRN Q6HRS PRN Omeprazole 20 Mg Capsule.dr 1 Cap PO DAILY PRN Montelukast Sodium Tablet (Montelukast Sodium) 10 Mg Tablet 10 Mg PO HS Albuterol Sulfate Neb Soln (Albuterol Sulfate) 0.63 Mg/3 Ml Vial.neb 0.63 Mg NEB DAILY Proair Hfa Inhaler (Albuterol Sulfate) 8.5 Gm Hfa.aer.ad 2 Puff IH PRN Q4-6HRS Advair 250-50 Diskus (Fluticasone/Salmeterol) 1 Each Disk.w.dev 2 Puff IH HS Montelukast Sodium Tablet (Montelukast Sodium) 10 Mg Tablet 10 Mg PO HS Vitals/I & O Vital Sign - Last 24 Hours 09/01/19 09/01/19 09/01/19 09/01/19 15:00 19:00 20:00 23:00 Temp 98.3 97.7 97.8 98.3 97.7 97.8 Pulse 46 48 45 Resp 22 24 24 B/P (MAP) 124/59 (80) 130/64 (86) 133/62 (85) Pulse Ox 97 93 95 O2 Delivery NonRebreather Mask NonRebreather Mask Non-Rebreather NonRebreather Mask O2 Flow Rate 15.0 15.0 15.0 15.0 09/02/19 09/02/19 09/02/19 09/02/19 03:00 07:00 07:58 11:18 Temp 97.9 97.7 96.7 97.9 97.7 96.7 Pulse 37 45 45 Resp 22 22 22 B/P (MAP) 141/77 (98) 122/67 (85) 142/67 (92) Pulse Ox 95 99 97 O2 Delivery NonRebreather Mask NonRebreather Mask Non-Rebreather NonRebreather Mask O2 Flow Rate 15.0 15.0 15.0 15.0 Intake and Output 09/01/19 09/01/19 09/02/19 15:00 23:00 07:00 Intake Total 1550 ml Balance 1550 ml Justicifation of Admission Dx: Justifications for Admission: Justification of Admission Dx: Yes MARIE ROMERO MD Sep 02, 2019 12:56
[2019-09-02 15:00] VITALS: BP 120/59
[2019-09-02 19:30] VITALS: BP 130/57
[2019-09-02 22:41] VITALS: BP 137/59
[2019-09-02] MEDS: ONDANSETRON PF 4 MG/2 ML VIAL. IVP PRN (23:41)
[2019-09-03 02:58] VITALS: BP 145/65
[2019-09-03] MEDS: BENZONATATE 100 MG CAPSULE. PO SCH ×4 (05:27→22:58)
[2019-09-03] MEDS: IV NORMAL SALINE 1000ML BAG 1,000 ML IV SCH (06:02)
[2019-09-03 07:00] VITALS: BP 117/65
--- NOTE | 2019-09-03 08:39 | PDOC ---
PULMONARY PROGRESS NOTES Subjective on 02 4 lpm, sob better, has cough better, has bustillos Vitals Vital Signs Date Time Temp Pulse Resp B/P (MAP) Pulse Ox O2 Delivery O2 Flow Rate FiO2 09/03/19 07:54 3.0 09/03/19 07:00 96.9 44 22 117/65 (82) 96 Nasal Cannula 96.9 Comments Patient seen doing the COVID- pandemic no respiratory distress no paroxysmal breathing alert no paradoxical abd motion bradycardic mild edema obese alert no rash General: Alert HEENT: Other (nc at perrl ) Cardiovascular: S1, S2, Other (nelson) Abdomen: Soft Neuro Exam: Alert Extremities: Other (edema) Skin: Warm Labs Laboratory Tests Test 09/01/19 08:44 Thyroid Stimulating Hormone (TSH) 2.371 uIU/mL (0.358-3.74) Medications Active Scripts Medications Dose Route/Sig Max Daily Dose Days Date Category Flonase Allergy Relief (Fluticasone Propionate) 9.9 Ml [place].susp 2 Sprays NS DAILY PRN 08/28/19 Reported Ibuprofen 400 Mg Tablet 400 Mg PO PRN Q6HRS PRN 08/28/19 Reported Omeprazole 20 Mg Capsule.dr 1 Cap PO DAILY PRN 08/28/19 Reported Montelukast Sodium Tablet (Montelukast Sodium) 10 Mg Tablet 10 Mg PO HS 08/28/19 Reported Tessalon Perle (Benzonatate) 100 Mg Capsule 1 Cap PO TID 7 10/15/17 Rx Prednisone 50 Mg Tablet 1 Tab PO DAILY 10/15/17 Rx Albuterol Sulfate Neb Soln (Albuterol Sulfate) 0.63 Mg/3 Ml Vial.neb 0.63 Mg NEB DAILY 11/29/14 Reported Proair Hfa Inhaler (Albuterol Sulfate) 8.5 Gm Hfa.aer.ad 2 Puff IH PRN Q4-6HRS 11/29/14 Reported Advair 250-50 Diskus (Fluticasone/Salmeterol) 1 Each Disk.w.dev 2 Puff IH HS 11/29/14 Reported Montelukast Sodium Tablet (Montelukast Sodium) 10 Mg Tablet 10 Mg PO HS 11/29/14 Reported Impression . IMPRESSION: 1. Acute hypoxemic respiratory failure. 2. Acute exacerbation of asthma. 3. COVID-19 pos, the patient exposed to 3 kids at home who tested positive for [id number]. 4. Morbid obesity. 5. History of bronchitis. 6. Hypothyroidism. 7. COVID-19 viral pneumonia 8. Bradycardia etiology unclear may be related to COVID-19, Plan . 02 titration on telemetry, monitor hr Cardiology consulted s/p convalescent serum change solumedrol to 40 bid Oxygen supplementation Lovenox 40 twice daily Status post Remdesivir discussed w SCOTT Amor MD Sep 03, 2019 08:39
[2019-09-03] MEDS: ACETAMINOPHEN 325 MG TABLET. PO PRN (09:54)
[2019-09-03] MEDS: methylPREDNISolone SOD SUCC PF 40 MG/ML VIAL. IV SCH ×2 (09:54→20:10)
[2019-09-03] MEDS: ENOXAPARIN 40 MG/0.4 ML SYRINGE. SQ SCH ×2 (09:55→20:10)
[2019-09-03 11:00] VITALS: BP 105/59
--- NOTE | 2019-09-03 12:26 | PDOC ---
PROGRESS NOTES Subjective Subjective Patient seen and evaluated Objective Objective Vital Signs Date Time Temp Pulse Resp B/P (MAP) Pulse Ox O2 Delivery O2 Flow Rate FiO2 09/03/19 11:00 98.4 48 20 105/59 (74) 96 Nasal Cannula 3.0 98.4 Intake and Output 09/03/19 07:00 Intake Total 1400 ml Output Total 1 ml Balance 1399 ml Intake Oral 1400 ml Output Urine Total 1 ml # Voids 4 # Bowel Movements 1 Physical Exam Physical Exam Deferred. Assessment Assessment Problems Medical Problems: (1) Hypoxia Status: Acute (2) Suspected 2019 novel coronavirus infection Status: Acute 1. Acute hypoxic respiratory failure, COVID positive. Continuing treatment as per the pulmonary and ID services. The patient continues to slowly improve. 2. Episodes of chest discomfort on admission. No acute ischemic EKG changes. No elevation in troponin. We will continue treatment as above. Will consider echocardiogram when available as per COVID protocol. If the patient has further discomfort as an outpatient would consider outpatient ischemic work-up. 3. Hypertension. Controlled. 4. Sinus bradycardia. Rate is mildly improved today and averages at 50 bpm. Not on any beta blockers or calcium blockers. We will continue to monitor. Comment Review of Relevant I have reviewed the following items natalya (where applicable) has been applied. Labs Microbiology 08/27/19 Blood Culture - Final, Complete NO GROWTH AFTER 5 DAYS Medications Current Medications Dexamethasone (Decadron) 10 mg 1X ONCE PO Last administered on 08/27/19at 17:05; Start 08/27/19 at 16:45; Stop 08/27/19 at 16:46; Status DC Ondansetron HCl (Zofran) 4 mg PRN Q8HRS PRN IV NAUSEA/VOMITING Last administered on 08/28/19at 09:31; Start 08/27/19 at 19:00; Stop 08/28/19 at 18:59; Status DC Albuterol/ Ipratropium (Duoneb) 3 ml PRN Q4HRS PRN NEB WHEEZING; Start 08/27/19 at 19:00; Stop 08/27/19 at 22:34; Status DC Albuterol Sulfate (Ventolin Hfa) 1 puff PRN Q8HRS PRN INH SHORTNESS OF BREATH Last administered on 09/01/19at 04:38; Start 08/27/19 at 22:45 Benzonatate (Tessalon Perle) 100 mg Q6HRS PO Last administered on 09/02/19at 22: 25; Start 08/28/19 at 08:00 Lorazepam (Ativan Inj) 1 mg PRN Q4HRS PRN IVP ANXIETY / AGITATION Last administered on 09/01/19at 04:39; Start 08/28/19 at 07:15 Morphine Sulfate (Morphine Sulfate) 1 mg PRN Q4HRS PRN IV PAIN Last administered on 08/30/19at 06:01; Start 08/28/19 at 07:15 Acetaminophen (Tylenol) 650 mg PRN Q6HRS PRN PO MILD PAIN / TEMP > 100.5'F Last administered on 09/03/19at 09:54; Start 08/28/19 at 10:15 Acetaminophen (Tylenol) 650 mg PRN Q6HRS PRN PO FEVER > 100.5'F; Start 08/28/19 at 10:15; Status UNV Methylprednisolone Sodium Succinate (SOLU-Medrol 40MG VIAL) 60 mg Q8HRS IV Last administered on 09/01/19at 14:51; Start 08/28/19 at 14:00; Stop 09/01/19 at 15:47; Status DC Sodium Chloride 1,000 ml @ 100 mls/hr Q10H IV ; Start 08/28/19 at 22:00; Stop 08/28/19 at 14:15; Status DC Sodium Chloride 1,000 ml @ 125 mls/hr 1X ONCE IV Last administered on 08/28/19at 14:13; Start 08/28/19 at 14:00; Stop 08/28/19 at 21:59; Status DC Enoxaparin Sodium (Lovenox Per Pharmacy Treatment Dosing) 1 each PRN DAILY PRN MC SEE COMMENTS; Start 08/28/19 at 16:45; Stop 08/31/19 at 17:42; Status DC Enoxaparin Sodium (Lovenox 120mg Syringe) 110 mg Q12HR SQ Last administered on 08/31/19at 08:21; Start 08/28/19 at 17:00; Stop 08/31/19 at 17:42; Status DC Sodium Chloride 1,000 ml @ 125 mls/hr Q8H IV Last administered on 09/03/19at 06:02; Start 08/29/19 at 03:30 Ondansetron HCl (Zofran) 4 mg PRN Q6HRS PRN IVP NAUSEA/VOMITING Last administered on 09/02/19at 23:41; Start 08/29/19 at 03:30 Non-Formulary Medication 1 ea/ Sodium Chloride 250 ml @ 250 mls/hr 1X ONCE IV Last administered on 08/29/19at 17:46; Start 08/29/19 at 17:00; Stop 08/29/19 at 17:59; Status DC Non-Formulary Medication 1 ea/ Sodium Chloride 250 ml @ 500 mls/hr DAILY IV Last administered on 09/02/19at 09:52; Start 08/30/19 at 09:00; Stop 09/02/19 at 09:29; Status DC Info (Anti-Coagulation Monitoring By Pharmacy) 1 each PRN DAILY PRN MC SEE COMMENTS Last administered on 08/31/19at 13:46; Start 08/31/19 at 13:45; Stop 08/31/19 at 17:47; Status DC Atropine Sulfate (ATROPINE 0.5mg SYRINGE) 0.5 mg PRN 1X PRN IV BRADYCARDIA; Start 08/31/19 at 16:45 Enoxaparin Sodium (Lovenox 40mg Syringe) 40 mg Q12HR SQ Last administered on 09/03/19at 09:55; Start 09/01/19 at 09:00 Methylprednisolone Sodium Succinate (SOLU-Medrol 40MG VIAL) 60 mg BID IV Last administered on 09/03/19at 09:54; Start 09/01/19 at 21:00; Stop 09/03/19 at 11:06; Status DC Methylprednisolone Sodium Succinate (SOLU-Medrol 40MG VIAL) 40 mg BID IV ; Start 09/03/19 at 21:00 Active Scripts Active Tessalon Perle (Benzonatate) 100 Mg Capsule 1 Cap PO TID 7 Days Prednisone 50 Mg Tablet 1 Tab PO DAILY Reported Flonase Allergy Relief (Fluticasone Propionate) 9.9 Ml [place].susp 2 Sprays NS DAILY PRN Ibuprofen 400 Mg Tablet 400 Mg PO PRN Q6HRS PRN Omeprazole 20 Mg Capsule.dr 1 Cap PO DAILY PRN Montelukast Sodium Tablet (Montelukast Sodium) 10 Mg Tablet 10 Mg PO HS Albuterol Sulfate Neb Soln (Albuterol Sulfate) 0.63 Mg/3 Ml Vial.neb 0.63 Mg NEB DAILY Proair Hfa Inhaler (Albuterol Sulfate) 8.5 Gm Hfa.aer.ad 2 Puff IH PRN Q4-6HRS Advair 250-50 Diskus (Fluticasone/Salmeterol) 1 Each Disk.w.dev 2 Puff IH HS Montelukast Sodium Tablet (Montelukast Sodium) 10 Mg Tablet 10 Mg PO HS Vitals/I & O Vital Sign - Last 24 Hours 09/02/19 09/02/19 09/02/19 09/02/19 15:00 19:30 20:00 22:41 Temp 98.0 97.9 98.5 98.0 97.9 98.5 Pulse 55 50 43 Resp 22 18 20 B/P (MAP) 120/59 (79) 130/57 (81) 137/59 (85) Pulse Ox 96 94 93 O2 Delivery NonRebreather Mask Room Air Nasal Cannula Room Air O2 Flow Rate 15.0 4.0 09/03/19 09/03/19 09/03/19 09/03/19 02:58 07:00 07:54 11:00 Temp 98.9 96.9 98.4 98.9 96.9 98.4 Pulse 38 44 48 Resp 30 22 20 B/P (MAP) 145/65 (91) 117/65 (82) 105/59 (74) Pulse Ox 92 96 96 O2 Delivery Nasal Cannula Nasal Cannula Nasal Cannula O2 Flow Rate 4.0 3.0 3.0 3.0 Intake and Output 09/02/19 09/02/19 09/03/19 15:00 23:00 07:00 Intake Total 300 ml 700 ml 400 ml Output Total 1 ml Balance 300 ml 700 ml 399 ml Justicifation of Admission Dx: Justifications for Admission: Justification of Admission Dx: Yes MARIE ROMERO MD Sep 03, 2019 12:26
--- NOTE | 2019-09-03 12:52 | PDOC ---
[facility] PROGRESS NOTE Chief Complaint Chief Complaint Asthma exacerbation Symptomatic bradycardia Hypoxia secondary to asthma and COVID positive Acute costochondritis Hypertension Hyperthyroidism Morbid obesity Appreciate pulmonary recommendations We will continue convalescent Ig therapy IV Remdesivir completed yesterday Steroids decreased to twice daily Continue nonrebreather and O2 therapy to titrate O2 levels greater than 92% Tylenol or NSAIDs for acute costochondritis. Recommend incentive spirometry and ambulation. Pending cardiology consult for symptomatic bradycardia. Lovenox dose decreased to 40 twice daily Discussed with RN History of Present Illness History of Present Illness 39-year-old female with history of asthma, hypertension, hypothyroidism comes with complaints of chest pain, shortness of breath, cough, and chills and says that she has been sick for the last month but has worsened in the past 3 days. Patient also states that her kids were tested positive for COVID. She denies any aggravating or alleviating factors. She has never experienced symptoms like this before. Before her admission she was using her albuterol inhaler about 3-5 times per week. Denies any sputum production or hemoptysis. Denies fevers, abdominal pain, diarrhea. 09/03/2019 No acute events overnight. Patient seen and examined bedside. Patient is currently saturating 96% on 3 L nasal cannula which has much been improved. She denies any current chest pain. She continues to be bradycardic at a slightly higher rate in the 50s. Not currently on any beta-blockers or calcium channel blockers. 09/02/2019 No acute events overnight. Patient continues to be bradycardic in the 35 to 40s. Cardiology stated that we will continue to observe for now. Patient is tolerating diet and her chest pains have improved. She still requires to be on 15 L nonrebreather and she continues to saturate at 95%. 09/01/2019 No acute events overnight. Patient does have bradycardia in the 35 to 40s that is sustained on telemetry monitoring. Patient continues to be on 15 L nonrebreather and saturating 94%. 08/30/2019 Patient seen and examined bedside. No acute events overnight. Patient continues to complain of pleuritic chest pain and remains on the nonrebreather. Patient is tolerating diet. 08/29/2019 Patient seen and examined bedside. No acute events overnight. Patient continues to be on nonrebreather with minimal improvement in symptoms. Patient has tested positive for COVID. Patient is tolerating diet, ambulating, and continues to complain of pleuritic chest pain. Vitals/I&O Vitals/I&O: Vital Signs Date Time Temp Pulse Resp B/P (MAP) Pulse Ox O2 Delivery O2 Flow Rate FiO2 09/03/19 11:00 98.4 48 20 105/59 (74) 96 Nasal Cannula 3.0 98.4 I & O 09/02/19 09/02/19 09/03/19 15:00 23:00 07:00 Intake Total 300 ml 700 ml 400 ml Output Total 1 ml Balance 300 ml 700 ml 399 ml Physical Exam Physical Exam: GENERAL: Patient is alert and awake. NAD HEENT: Moist mucous membranes. No scleral icterus or obvious cervical lymphadenopathy CV: RRR. No murmurs rubs or gallops. Unable to appreciate S3 or S4 PULM: Bilaterally wheezing on auscultation. ABD: Soft and nondistended on visualization and palpation. Normoactive bowel sounds heard. EXTREMITIES: No pedal edema seen. No warmth or tenderness upon touch. NEURO: Full ROM in all extremities. normal strength on upper extremities. Review of Systems Review of Systems: CONSTITUIONAL: Denies weight loss, fever and chills. HEENT: Denies changes in vision and hearing. RESPIRATORY: Denies SOB and cough. CV: Denies palpitations and CP. GI: Denies abdominal pain, nausea, vomiting and diarrhea. : Denies dysuria and urinary frequency. MSK: Denies myalgia and joint pain. SKIN: Denies rash and pruritus. NEUROLOGICAL: Denies headache and syncope. PSYCHIATRIC: Denies recent changes in mood. Denies anxiety and depression. Assessment and Plan Assessmemt and Plan Problems Medical Problems: (1) Hypoxia Status: Acute (2) Suspected 2019 novel coronavirus infection Status: Acute Comment Review of Relevant I have reviewed the following items natalya (where applicable) has been applied. Justicifation of Admission Dx: Justifications for Admission: Justification of Admission Dx: Yes DUNIA MCKEON MD Sep 03, 2019 12:52
[2019-09-03 15:00] VITALS: BP 113/60
[2019-09-03 20:21] VITALS: BP 120/60
[2019-09-03 22:54] VITALS: BP 137/70
[2019-09-04 02:37] VITALS: BP 154/68
[2019-09-04] MEDS: BENZONATATE 100 MG CAPSULE. PO SCH ×4 (05:31→23:32)
[2019-09-04 08:15] VITALS: BP 140/67
[2019-09-04] MEDS: methylPREDNISolone SOD SUCC PF 40 MG/ML VIAL. IV SCH (09:46)
[2019-09-04] MEDS: ENOXAPARIN 40 MG/0.4 ML SYRINGE. SQ SCH ×2 (09:47→20:57)
[2019-09-04] MEDS ORDERED: guaiFENesin DM 200MG/20MG 10 ML SYRUP PO PRN (11:30)
[2019-09-04] MEDS: ACETAMINOPHEN 325 MG TABLET. PO PRN ×2 (11:30→22:20)
--- NOTE | 2019-09-04 11:32 | PDOC ---
PROGRESS NOTES Chief Complaint Chief Complaint Asthma exacerbation Symptomatic bradycardia Hypoxia secondary to asthma and COVID positive Acute costochondritis Hypertension Hyperthyroidism Morbid obesity Appreciate pulmonary recommendations We will continue convalescent Ig therapy IV Remdesivir completed yesterday Steroids decreased to twice daily Continue nonrebreather and O2 therapy to titrate O2 levels greater than 92% Tylenol or NSAIDs for acute costochondritis. Recommend incentive spirometry and ambulation. Pending cardiology consult for symptomatic bradycardia. Lovenox dose decreased to 40 twice daily Discussed with RN History of Present Illness History of Present Illness Ms Das is a 39 yo F with history of asthma, hypertension, hypothyroidism comes with complaints of chest pain, shortness of breath, cough, and chills and says that she has been sick for the last month but has worsened in the past 3 days. Patient also states that her kids were tested positive for COVID. She denies any aggravating or alleviating factors. She has never experienced symptoms like this before. Before her admission she was using her albuterol inhaler about 3-5 times per week. Denies any sputum production or hemoptysis. Denies fevers, abdominal pain, diarrhea. 08/28: Continues to be on nonrebreather with minimal improvement in symptoms. Patient has tested positive for COVID. Patient is tolerating diet, ambulating, and continues to complain of pleuritic chest pain. 08/29: Continues to complain of pleuritic chest pain and remains on the nonrebreather. Patient is tolerating diet. Convalescent FFP given. 08/31: Bradycardia in the 35 to 40s that is sustained on telemetry monitoring. Patient continues to be on 15 L nonrebreather and saturating 94%. 09/01: Bradycardic in the 35 to 40s. Cardiology stated that we will continue to observe for now. She still requires to be on 15 L nonrebreather and she continues to saturate at 95%. 09/02: Saturating 96% on 3 L nasal cannula which has much been improved. She denies any current chest pain. She continues to be bradycardic at a slightly higher rate in the 50s. Bradycardic into the 30s overnight. Still on 3 L nasal cannula saturating 93%. Afebrile. She notes she feels better and was able to ambulate 8 feet to the restroom for a shower, desaturated significantly into the 70s with this. Vitals Vitals Vital Signs Date Time Temp Pulse Resp B/P (MAP) Pulse Ox O2 Delivery O2 Flow Rate FiO2 09/04/19 08:15 96.8 45 140/67 (91) 93 Nasal Cannula 3.0 96.8 09/04/19 02:37 18 Physical Exam Physical Exam GENERAL: Patient is alert and awake. NAD HEENT: Moist mucous membranes. No scleral icterus or obvious cervical lymphadenopathy CV: RRR. No murmurs rubs or gallops. Unable to appreciate S3 or S4 PULM: Bilaterally wheezing on auscultation. ABD: Soft and nondistended on visualization and palpation. Normoactive bowel sounds heard. EXTREMITIES: No pedal edema seen. No warmth or tenderness upon touch. NEURO: Full ROM in all extremities. normal strength on upper extremities. Assessment and Plan Assessmemt and Plan Problems Medical Problems: (1) Hypoxia Status: Acute (2) Suspected 2019 novel coronavirus infection Status: Acute Comment Review of Relevant I have reviewed the following items natalya (where applicable) has been applied. Labs Microbiology 08/27/19 Blood Culture - Final, Complete NO GROWTH AFTER 5 DAYS Medications Current Medications Dexamethasone (Decadron) 10 mg 1X ONCE PO Last administered on 08/27/19at 17:05; Start 08/27/19 at 16:45; Stop 08/27/19 at 16:46; Status DC Ondansetron HCl (Zofran) 4 mg PRN Q8HRS PRN IV NAUSEA/VOMITING Last administered on 08/28/19at 09:31; Start 08/27/19 at 19:00; Stop 08/28/19 at 18:59; Status DC Albuterol/ Ipratropium (Duoneb) 3 ml PRN Q4HRS PRN NEB WHEEZING; Start 08/27/19 at 19:00; Stop 08/27/19 at 22:34; Status DC Albuterol Sulfate (Ventolin Hfa) 1 puff PRN Q8HRS PRN INH SHORTNESS OF BREATH Last administered on 09/01/19at 04:38; Start 08/27/19 at 22:45 Benzonatate (Tessalon Perle) 100 mg Q6HRS PO Last administered on 09/04/19at 05:31; Start 08/28/19 at 08:00 Lorazepam (Ativan Inj) 1 mg PRN Q4HRS PRN IVP ANXIETY / AGITATION Last administered on 09/01/19at 04:39; Start 08/28/19 at 07:15 Morphine Sulfate (Morphine Sulfate) 1 mg PRN Q4HRS PRN IV PAIN Last administered on 08/30/19at 06:01; Start 08/28/19 at 07:15 Acetaminophen (Tylenol) 650 mg PRN Q6HRS PRN PO MILD PAIN / TEMP > 100.5'F Last administered on 09/03/19at 09:54; Start 08/28/19 at 10:15 Acetaminophen (Tylenol) 650 mg PRN Q6HRS PRN PO FEVER > 100.5'F; Start 08/28/19 at 10:15; Status UNV Methylprednisolone Sodium Succinate (SOLU-Medrol 40MG VIAL) 60 mg Q8HRS IV Last administered on 09/01/19at 14:51; Start 08/28/19 at 14:00; Stop 09/01/19 at 15:47; Status DC Sodium Chloride 1,000 ml @ 100 mls/hr Q10H IV ; Start 08/28/19 at 22:00; Stop 08/28/19 at 14:15; Status DC Sodium Chloride 1,000 ml @ 125 mls/hr 1X ONCE IV Last administered on 08/28/19at 14:13; Start 08/28/19 at 14:00; Stop 08/28/19 at 21:59; Status DC Enoxaparin Sodium (Lovenox Per Pharmacy Treatment Dosing) 1 each PRN DAILY PRN MC SEE COMMENTS; Start 08/28/19 at 16:45; Stop 08/31/19 at 17:42; Status DC Enoxaparin Sodium (Lovenox 120mg Syringe) 110 mg Q12HR SQ Last administered on 08/31/19at 08:21; Start 08/28/19 at 17:00; Stop 08/31/19 at 17:42; Status DC Sodium Chloride 1,000 ml @ 125 mls/hr Q8H IV Last administered on 09/03/19at 0 6:02; Start 08/29/19 at 03:30; Stop 09/03/19 at 15:38; Status DC Ondansetron HCl (Zofran) 4 mg PRN Q6HRS PRN IVP NAUSEA/VOMITING Last administered on 09/02/19at 23:41; Start 08/29/19 at 03:30 Non-Formulary Medication 1 ea/ Sodium Chloride 250 ml @ 250 mls/hr 1X ONCE IV Last administered on 08/29/19 17:46; Start 08/29/19 at 17:00; Stop 08/29/19 at 17:59; Status DC Non-Formulary Medication 1 ea/ Sodium Chloride 250 ml @ 500 mls/hr DAILY IV Last administered on 09/02/19at 09:52; Start 08/30/19 at 09:00; Stop 09/02/19 at 09:29; Status DC Info (Anti-Coagulation Monitoring By Pharmacy) 1 each PRN DAILY PRN MC SEE COMMENTS Last administered on 08/31/19at 13:46; Start 08/31/19 at 13:45; Stop 08/31/19 at 17:47; Status DC Atropine Sulfate (ATROPINE 0.5mg SYRINGE) 0.5 mg PRN 1X PRN IV BRADYCARDIA; Start 08/31/19 at 16:45 Enoxaparin Sodium (Lovenox 40mg Syringe) 40 mg Q12HR SQ Last administered on 09/04/19at 09:47; Start 09/01/19 at 09:00 Methylprednisolone Sodium Succinate (SOLU-Medrol 40MG VIAL) 60 mg BID IV Last administered on 09/03/19at 09:54; Start 09/01/19 at 21:00; Stop 09/03/19 at 11:06; Status DC Methylprednisolone Sodium Succinate (SOLU-Medrol 40MG VIAL) 40 mg BID IV Last administered on 09/04/19at 09:46; Start 09/03/19 at 21:00 Active Scripts Active Tessalon Perle (Benzonatate) 100 Mg Capsule 1 Cap PO TID 7 Days Prednisone 50 Mg Tablet 1 Tab PO DAILY Reported Flonase Allergy Relief (Fluticasone Propionate) 9.9 Ml [place].susp 2 Sprays NS DAILY PRN Ibuprofen 400 Mg Tablet 400 Mg PO PRN Q6HRS PRN Omeprazole 20 Mg Capsule.dr 1 Cap PO DAILY PRN Montelukast Sodium Tablet (Montelukast Sodium) 10 Mg Tablet 10 Mg PO HS Albuterol Sulfate Neb Soln (Albuterol Sulfate) 0.63 Mg/3 Ml Vial.neb 0.63 Mg NEB DAILY Proair Hfa Inhaler (Albuterol Sulfate) 8.5 Gm Hfa.aer.ad 2 Puff IH PRN Q4-6HRS Advair 250-50 Diskus (Fluticasone/Salmeterol) 1 Each Disk.w.dev 2 Puff IH HS Montelukast Sodium Tablet (Montelukast Sodium) 10 Mg Tablet 10 Mg PO HS Vitals/I & O Vital Sign - Last 24 Hours 09/03/19 09/03/19 09/03/19 09/03/19 15:00 19:32 20:21 22:54 Temp 97.7 98.2 97.5 97.7 98.2 97.5 Pulse 49 53 42 Resp 17 20 20 B/P (MAP) 113/60 (77) 120/60 (80) 137/70 (92) Pulse Ox 93 93 93 O2 Delivery Nasal Cannula Nasal Cannula Nasal Cannula O2 Flow Rate 3.0 3.0 3.0 3.0 09/04/19 09/04/19 09/04/19 02:37 08:00 08:15 Temp 97.0 96.8 97.0 96.8 Pulse 37 45 Resp 18 B/P (MAP) 154/68 (96) 140/67 (91) Pulse Ox 94 93 O2 Delivery Nasal Cannula Nasal Cannula Nasal Cannula O2 Flow Rate 5.0 3.0 3.0 Intake and Output 09/03/19 09/03/19 09/04/19 15:00 23:00 07:00 Intake Total 600 ml 240 ml 500 ml Balance 600 ml 240 ml 500 ml Justicifation of Admission Dx: Justifications for Admission: Justification of Admission Dx: Yes CRISTINA SPENCE MD Sep 04, 2019 11:32
[2019-09-04 11:48] VITALS: BP 129/64
--- NOTE | 2019-09-04 13:07 | NUR ---
JUNIOR following. Spoke with RN and reviewed chart. JUNIOR LVM for [facility] again today to see about [employer] benefits from pt's spouse. Pt listed as self-pay. Pt was on a nonrebreather last week but is currently on 3l 02. Pt on IV Morphine. Pt COVID positive. JUNIOR attempted to call emergency contacts and numbers are disconnected. SW to continue following. Addendum: 09/04/19 at 1543 by JADA PACHECO Spoke with Dr. Ruiz who stated pt can discharge tomorrow, 09/05/2019. Spoke with son at [phone] who stated they will pay $165 per month for pt to have 02. JUNIOR provided contact information for Coni and asked son to call today to make arrangements to pay for 02 for pt's discharge tomorrow.
[2019-09-04 16:25] VITALS: BP 133/72
--- NOTE | 2019-09-04 16:25 | PDOC ---
PULMONARY PROGRESS NOTES Subjective Patient not more short of air Vitals Vital Signs Date Time Temp Pulse Resp B/P (MAP) Pulse Ox O2 Delivery O2 Flow Rate FiO2 09/04/19 11:48 97.7 54 24 129/64 (85) 94 3.0 97.7 09/04/19 08:15 Nasal Cannula Comments Patient seen doing the COVID-19 pandemic no respiratory distress no paroxysmal breathing alert no paradoxical abd motion bradycardic mild edema obese alert no rash General: Alert HEENT: Other (nc at perrl ) Cardiovascular: S1, S2, Other (nelson) Abdomen: Soft Neuro Exam: Alert Extremities: Other (edema) Skin: Warm Medications Active Scripts Medications Dose Route/Sig Max Daily Dose Days Date Category Flonase Allergy Relief (Fluticasone Propionate) 9.9 Ml [place].susp 2 Sprays NS DAILY PRN 08/28/19 Reported Ibuprofen 400 Mg Tablet 400 Mg PO PRN Q6HRS PRN 08/28/19 Reported Omeprazole 20 Mg Capsule.dr 1 Cap PO DAILY PRN 08/28/19 Reported Montelukast Sodium Tablet (Montelukast Sodium) 10 Mg Tablet 10 Mg PO HS 08/28/19 Reported Tessalon Perle (Benzonatate) 100 Mg Capsule 1 Cap PO TID 7 10/15/17 Rx Prednisone 50 Mg Tablet 1 Tab PO DAILY 10/15/17 Rx Albuterol Sulfate Neb Soln (Albuterol Sulfate) 0.63 Mg/3 Ml Vial.neb 0.63 Mg NEB DAILY 11/29/14 Reported Proair Hfa Inhaler (Albuterol Sulfate) 8.5 Gm Hfa.aer.ad 2 Puff IH PRN Q4-6HRS 11/29/14 Reported Advair 250-50 Diskus (Fluticasone/Salmeterol) 1 Each Disk.w.dev 2 Puff IH HS 11/29/14 Reported Montelukast Sodium Tablet (Montelukast Sodium) 10 Mg Tablet 10 Mg PO HS 11/29/14 Reported Impression . IMPRESSION: 1. Acute hypoxemic respiratory failure. 2. Acute exacerbation of asthma. 3. COVID-19 pos, the patient exposed to 3 kids at home who tested positive for [id number]. 4. Morbid obesity. 5. History of bronchitis. 6. Hypothyroidism. 7. COVID-19 viral pneumonia 8. Bradycardia etiology unclear may be related to COVID-19, Plan . 6-minute walk Possible discharge in the a.m. s/p convalescent serum Solu-Medrol once daily Lovenox 40 twice daily Status post Remdesivir discussed w RIP Bender MD Sep 04, 2019 16:24
--- NOTE | 2019-09-04 17:03 | PDOC ---
LIZZIE,DEMIAN AMBER 09/04/19 1702: CARDIO Progress Notes Date and Time Date of Service 09/04/19 Time of Evaluation 1230 Subjective Subjective: No Chest Pain, No Palpitations, Other (not more SOA) Vitals Vitals Vital Signs Date Time Temp Pulse Resp B/P (MAP) Pulse Ox O2 Delivery O2 Flow Rate FiO2 09/04/19 11:48 97.7 54 24 129/64 (85) 94 3.0 97.7 09/04/19 08:15 Nasal Cannula Weight Weight [ ] Input and Output Intake and Output Intake and Output 09/04/19 07:00 Intake Total 1340 ml Balance 1340 ml Intake Oral 1340 ml # Voids 4 Microbiology Micro Microbiology 08/27/19 Blood Culture - Final, Complete NO GROWTH AFTER 5 DAYS Physical Exam HEENT: Neck Supple W Full Motion Chest: Symmetric Heart: RRR (SR 60) Abdomen: Soft N/T, Other (obese) Extremities: No Edema Neurology: alert, oriented, follow commands Assessment Assessment 1. Acute hypoxic respiratory failure, PNA. COVID positive. s/p Remdesivir and convalescent serum 2. Chest pain, atypical. EKG without significant acute changes. AMI ruled out. 3. Hypertension; controlled 4. Sinus bradycardia. Lowest 49. Mean 60. No pauses. 5. Morbid obesity 6. Hypothyroidism Recommendations Avoid AV marko blocking agents. Outpatient echo once recovered from COVID Consider outpatient ischemic evaluation Ongoing lung optimization as per pulm Supportive care Justicifation of Admission Dx: Justifications for Admission: Justification of Admission Dx: Yes MARIE ROMERO MD 09/04/19 1712: CARDIO Progress Notes Assessment Assessment Patient seen and evaluated Agree with our nurse practitioners assessment and plan. Acute hypoxic respiratory failure, PNA. COVID positive. s/p Remdesivir and convalescent serum Chest pain, atypical. EKG without significant acute changes. AMI ruled out. Hypertension; controlled Sinus bradycardia. Lowest 49. Mean 60. No pauses. Future echocardiogram. DEMIAN SAMUEL APRN Sep 04, 2019 17:02 MARIE ROMERO MD Sep 04, 2019 17:12
[2019-09-04 19:10] VITALS: BP 128/76
[2019-09-04] MEDS ORDERED: ZINC SULFATE 220 MG CAPSULE. PO SCH (21:00)
[2019-09-04 23:40] VITALS: BP 117/62
[2019-09-05 03:10] VITALS: BP 117/59
[2019-09-05] MEDS: BENZONATATE 100 MG CAPSULE. PO SCH ×2 (05:31→12:31)
[2019-09-05] MEDS: ACETAMINOPHEN 325 MG TABLET. PO PRN (05:31)
[2019-09-05 07:22] VITALS: BP 130/87
[2019-09-05] MEDS ORDERED: methylPREDNISolone SOD SUCC PF 40 MG/ML VIAL. IV SCH (09:00)
[2019-09-05] MEDS: ENOXAPARIN 40 MG/0.4 ML SYRINGE. SQ SCH (09:18)
[2019-09-05 11:32] VITALS: BP 130/87
[2019-09-05] MEDS ORDERED: PRED50TA PO (12:25)
--- NOTE | 2019-09-05 12:32 | PDOC3 ---
Discharge Summary Visit Information Date of Admission: Aug 27, 2019 Date of Discharge: Sep 05, 2019 Admitting Diagnosis: Acute hypoxic respiratory failure. COVID 19 pneumonia Final Diagnosis Problems Medical Problems: (1) Hypoxia Status: Acute (2) Suspected 2019 novel coronavirus infection Status: Acute Brief Hospital Course Allergies Allergies Coded Allergies Type Severity Reaction Last Updated Verified No Known Drug Allergies 08/03/13 No Vital Signs Vital Signs Date Time Temp Pulse Resp B/P (MAP) Pulse Ox O2 Delivery O2 Flow Rate FiO2 09/05/19 11:32 98.2 59 18 130/87 (101) 93 Nasal Cannula 3.0 98.2 Brief Hospital Course Ms Das is a 39 yo F with history of asthma, hypertension, hypothyroidism comes with complaints of chest pain, shortness of breath, cough, and chills and says that she has been sick for the last month but has worsened in the past 3 days. Patient also states that her kids were tested positive for COVID. She denies any aggravating or alleviating factors. She has never experienced symptoms like this before. Before her admission she was using her albuterol inhaler about 3-5 times per week. Denies any sputum production or hemoptysis. Denies fevers, abdominal pain, diarrhea. 08/28: Continues to be on nonrebreather with minimal improvement in symptoms. Patient has tested positive for COVID. Patient is tolerating diet, ambulating, and continues to complain of pleuritic chest pain. 08/29: Continues to complain of pleuritic chest pain and remains on the nonrebreather. Patient is tolerating diet. Convalescent FFP given. 08/31: Bradycardia in the 35 to 40s that is sustained on telemetry monitoring. Patient continues to be on 15 L nonrebreather and saturating 94%. 09/01: Bradycardic in the 35 to 40s. Cardiology stated that we will continue to observe for now. She still requires to be on 15 L nonrebreather and she continues to saturate at 95%. 09/02: Saturating 96% on 3 L nasal cannula which has much been improved. She denies any current chest pain. She continues to be bradycardic at a slightly higher rate in the 50s. 09/03: Bradycardic into the 30s overnight. Still on 3 L nasal cannula saturating 93%. Afebrile. She notes she feels better and was able to ambulate 8 feet to the restroom for a shower, desaturated significantly into the 70s with this. Afebrile on day of discharge, discussed with pulmonology okay to discharge home after 6-minute walk showed 3 L nasal cannula at rest and on exertion with no significant O2 desaturations. Will be discharged on steroid taper as well. Given strict instructions for return if symptoms worsen and to follow CDC guidelines on continuing to quarantine until 3 days after symptoms have completely resolved and 10 days after her last positive test (09/06/2019). VS: 98.2, HR 59, BP 138/96. 93% on 3L NCO2 Physical Exam GENERAL: Patient is alert and awake. NAD HEENT: Moist mucous membranes. No scleral icterus or obvious cervical lymphadenopathy CV: RRR. No murmurs rubs or gallops. Unable to appreciate S3 or S4 PULM: Bilaterally wheezing on auscultation. ABD: Soft and nondistended on visualization and palpation. Normoactive bowel sounds heard. EXTREMITIES: No pedal edema seen. No warmth or tenderness upon touch. NEURO: Full ROM in all extremities. normal strength on upper extremities. Consults: Pulm, Cardiology Problem list: Asthma exacerbation Symptomatic bradycardia Hypoxia secondary to asthma and COVID positive Acute costochondritis Hypertension Hyperthyroidism Morbid obesity Appreciate pulmonary recommendations Completed convalescent Ig therapy IV Remdesivir completed Steroids decreased to daily Tylenol or NSAIDs for acute costochondritis. Recommend incentive spirometry and ambulation. Greater than 30 minutes spent on d/c Discharge Information Condition at Discharge: Stable Follow Up: Weeks Disposition/Orders: D/C to Home (1) Scheduled Albuterol Sulfate (Proair Hfa Inhaler) 8.5 Gm Hfa.aer.ad, 2 PUFF IH PRN Q4-6HRS for SHORTNESS OF BREATH, #1 (Reported) Entered as Reported by: PERI MALDONADO on 11/29/142035 Last Action: Reviewed on 08/28/19604 by RODY RUEDA RN Albuterol Sulfate (Albuterol Sulfate Neb Soln) 0.63 Mg/3 Ml Vial.neb, 0.63 MG NEB DAILY for SHORTNESS OF BREATH, Ref 0 (Reported) Entered as Reported by: PERI MALDONADO on 11/29/142035 Last Action: Reviewed on 08/28/19604 by RODY RUEDA RN Benzonatate (Tessalon Perle) 100 Mg Capsule, 1 CAP PO TID for 7 Days, #21 Prescribed by: JACEK SIERRA APRN on 10/15/17 1516 Fluticasone/Salmeterol (Advair 250-50 Diskus) 1 Each Disk.w.dev, 2 PUFF IH HS for SHORTNESS OF BREATH, #1 Ref 5 (Reported) Entered as Reported by: PERI MALDONADO on 11/29/142035 Last Action: Reviewed on 08/28/19604 by RODY RUEDA RN Montelukast Sodium (Montelukast Sodium Tablet ) 10 Mg Tablet, 10 MG PO HS, #30 Ref 0 (Reported) Entered as Reported by: PERI MALDONADO on 11/29/142027 Last Action: Reviewed on 08/28/19604 by RODY RUEDA RN Montelukast Sodium (Montelukast Sodium Tablet ) 10 Mg Tablet, 10 MG PO HS for FOR ASTHMA, Ref 0 (Reported) Entered as Reported by: RODY RUEDA RN on 08/28/19604 Last Action: New Order on 08/28/19604 by RODY RUEDA RN Prednisone (Prednisone) 50 Mg Tablet, 1 TAB PO DAILY for COVID 19 for 5 Days, #5 Prescribed by: CRISTINA SPENCE MD on 09/05/19 1225 Scheduled PRN Fluticasone Propionate (Flonase Allergy Relief) 9.9 Ml [place].susp, 2 SPRAYS NS DAILY PRN for ALLERGIES, (Reported) Entered as Reported by: RODY RUEDA RN on 08/28/19605 Last Action: New Order on 08/28/19605 by RODY RUEDA RN Omeprazole (Omeprazole) 20 Mg Capsule.dr, 1 CAP PO DAILY PRN for HEARTBURN / GAS, #30 Ref 5 (Reported) Entered as Reported by: RODY RUEDA RN on 08/28/19604 Last Taken: UNKNOWN on Unknown Date & Time Last Action: New Order on 08/28/19604 by RODY RUEDA RN Discontinued Medications Ibuprofen (Ibuprofen) 400 Mg Tablet, 400 MG PO PRN Q6HRS PRN for INFLAMMATION, (Reported) Entered as Reported by: RODY RUEDA RN on 08/28/19605 Last Action: New Order on 08/28/19605 by RODY RUEDA RN Justicifation of Admission Dx: Justifications for Admission: Justification of Admission Dx: Yes CRISTINA SPENCE MD Sep 05, 2019 12:32
--- NOTE | 2019-09-05 12:48 | NUR ---
SW following. Spoke with RN and reviewed chart. Coordinated care with Dr. Mcneal. Pt ready for discharge home today to self quarantine. JUNIOR phoned and faxed 02 orders to Lemuel at [facility], , (fax). JUNIOR confirmed with Brigid from [facility] that pt's son called to make arrangements to pay for 02 at $165 per month. Pt provided with tank for transport home per approval from Brigid at [facility]. Pt on oral medications. No further SW needs at this time.
--- NOTE | 2019-09-05 13:22 | PDOC ---
PULMONARY PROGRESS NOTES Subjective Patient not more short of air Vitals Vital Signs Date Time Temp Pulse Resp B/P (MAP) Pulse Ox O2 Delivery O2 Flow Rate FiO2 09/05/19 11:32 98.2 59 18 130/87 (101) 93 Nasal Cannula 3.0 98.2 Comments Patient seen doing the COVID-19 pandemic no respiratory distress no paroxysmal breathing alert no paradoxical abd motion bradycardic mild edema obese alert no rash General: Alert HEENT: Other (nc at perrl ) Cardiovascular: S1, S2, Other (nelson) Abdomen: Soft Neuro Exam: Alert Extremities: Other (edema) Skin: Warm Medications Active Scripts Medications Dose Route/Sig Max Daily Dose Days Date Category Flonase Allergy Relief (Fluticasone Propionate) 9.9 Ml [place].susp 2 Sprays NS DAILY PRN 08/28/19 Reported Ibuprofen 400 Mg Tablet 400 Mg PO PRN Q6HRS PRN 08/28/19 Reported Omeprazole 20 Mg Capsule.dr 1 Cap PO DAILY PRN 08/28/19 Reported Montelukast Sodium Tablet (Montelukast Sodium) 10 Mg Tablet 10 Mg PO HS 08/28/19 Reported Tessalon Perle (Benzonatate) 100 Mg Capsule 1 Cap PO TID 7 10/15/17 Rx Prednisone 50 Mg Tablet 1 Tab PO DAILY 10/15/17 Rx Albuterol Sulfate Neb Soln (Albuterol Sulfate) 0.63 Mg/3 Ml Vial.neb 0.63 Mg NEB DAILY 11/29/14 Reported Proair Hfa Inhaler (Albuterol Sulfate) 8.5 Gm Hfa.aer.ad 2 Puff IH PRN Q4-6HRS 11/29/14 Reported Advair 250-50 Diskus (Fluticasone/Salmeterol) 1 Each Disk.w.dev 2 Puff IH HS 11/29/14 Reported Montelukast Sodium Tablet (Montelukast Sodium) 10 Mg Tablet 10 Mg PO HS 11/29/14 Reported Impression . IMPRESSION: 1. Acute hypoxemic respiratory failure. 2. Acute exacerbation of asthma. 3. COVID-19 pos, the patient exposed to 3 kids at home who tested positive for [id number]. 4. Morbid obesity. 5. History of bronchitis. 6. Hypothyroidism. 7. COVID-19 viral pneumonia 8. Bradycardia etiology unclear may be related to COVID-19, Plan . Case discussed with Dr. Elizabet hernandez to discharge RIP FERNANDEZ MD Sep 05, 2019 13:22
--- NOTE | 2019-09-05 14:21 | NUR ---
Discharge Note: DIONTE CAMILO Discharge instructions and discharge home medications reviewed with Patient and a copy given. All questions have been answered and understanding verbalized. Instructions and handouts were given. Discontinued lines and drains. Patient discharged to home self care.
--- NOTE | 2019-09-05 17:30 | PDOC ---
CARDIO Progress Notes Date and Time Date of Service 09/05/19 Time of Evaluation 1015 Subjective Subjective: No Chest Pain, No Palpitations, Other (not more SOA) Vitals Vitals Vital Signs Date Time Temp Pulse Resp B/P (MAP) Pulse Ox O2 Delivery O2 Flow Rate FiO2 09/05/19 11:32 98.2 59 18 130/87 (101) 93 Nasal Cannula 3.0 98.2 Weight Weight [ ] Input and Output Intake and Output Intake and Output 09/05/19 07:00 Intake Total 130 ml Balance 130 ml Intake Oral 130 ml # Voids 6 Microbiology Micro Microbiology 08/27/19 Blood Culture - Final, Complete NO GROWTH AFTER 5 DAYS Physical Exam HEENT: Neck Supple W Full Motion Chest: Symmetric Heart: RRR (SR 60) Abdomen: Soft N/T, Other (obese) Extremities: No Edema Neurology: alert, oriented, follow commands Assessment Assessment 1. Acute hypoxic respiratory failure, PNA. COVID positive. s/p Remdesivir and convalescent serum .Improved 2. Chest pain, atypical. EKG without significant acute changes. AMI ruled out. 3. Hypertension; controlled 4. Sinus bradycardia. Lowest 49. Mean 60. No pauses. 5. Morbid obesity 6. Hypothyroidism Recommendations Avoid AV marko blocking agents. Outpatient echo once recovered from COVID Consider outpatient ischemic evaluation Lung optimization as per pulm Supportive care Justicifation of Admission Dx: Justifications for Admission: Justification of Admission Dx: Yes DEMIAN SAMUEL APRN Sep 05, 2019 17:30
== END 2019-09-05 14:25 | disposition home or self-care (01) | DRG 177 ==
LOC: ER 15:25 → 6 SOUTH 18:54 → ED HOLD 18:55 → 6 SOUTH 08-28 04:16
PROVIDERS: ADMIT Preventive Medicine Public Health & General Preventive Medicine; ATTEND Preventive Medicine Public Health & General Preventive Medicine
PROC: 30233K1 Transfusion of Nonautologous Frozen Plasma into Peripheral Vein, Percutaneous Approach (ICD-10-PCS; principal; 2019-08-30)
DX: U07.1 COVID-19 (principal); J12.89 Other viral pneumonia; J96.01 Acute respiratory failure with hypoxia; J45.901 Unspecified asthma with (acute) exacerbation; Z68.42 Body mass index [BMI] 45.0-49.9, adult; E03.9 Hypothyroidism, unspecified; E05.90 Thyrotoxicosis, unspecified without thyrotoxic crisis or storm; E66.01 Morbid (severe) obesity due to excess calories; I10 Essential (primary) hypertension; M94.0 Chondrocostal junction syndrome [Tietze]; Z82.49 Family history of ischemic heart disease and other diseases of the circulatory system; Z87.01 Personal history of pneumonia (recurrent); Z90.49 Acquired absence of other specified parts of digestive tract; Z79.899 Other long term (current) drug therapy
CPT/HCPCS: 36415; 36600; 71045; 80048; 80053; 82553; 82728; 82805; 83605; 83615; 83735; 84100; 84443; 84484; 85007; 85014; 85018; 85025; 85379; 85384; 85610; 85730; 86140; 86850; 86900; 86901; 86927; 87040; 93005; 94618; 94640; 94760; J1650; J2060; J2270; J2405; J2920; J7030; J7050; 94664; 99285-25; G0378; P9017; U0003-CS

== ENCOUNTER 2020-11-08 19:22 | Emergency (ER) | payer SELFPAY ==
[~2020-11-08] VITALS: Ht 154.9 cm; Wt 111.3 kg
[~2020-11-08 19:22] MED LIST changes: +FLUT9.9S NS; +IBUP-1027 PO; +OMEP20CA16 PO
[2020-11-08] MEDS ORDERED: CYCL10TA2 PO (21:50)
[2020-11-08] MEDS ORDERED: TRAM-48 PO (21:50)
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
[2020-11-08] MEDS ORDERED: CYCLOBENZAPRINE 10 MG TABLET. PO ONE (22:00)
[2020-11-08] MEDS ORDERED: KETOROLAC 60 MG/2 ML VIAL. IM ONE (22:00)
[2020-11-08 22:20] VITALS: BP 120/78
== END 2020-11-08 22:24 | disposition home or self-care (01) ==
LOC: ER 19:22
DX: S16.1XXA Strain of muscle, fascia and tendon at neck level, initial encounter (principal); R51.9 Headache, unspecified; M54.5 Low back pain; M54.6 Pain in thoracic spine; J45.909 Unspecified asthma, uncomplicated; I10 Essential (primary) hypertension; Z87.891 Personal history of nicotine dependence; V49.49XA Driver injured in collision with other motor vehicles in traffic accident, initial encounter; Y92.488 Other paved roadways as the place of occurrence of the external cause; Y93.89 Activity, other specified; Y99.8 Other external cause status
CPT/HCPCS: 96372; 99283; J1885